=== PATIENT | male | born 1955 | race Hispanic/Latino ===

== ENCOUNTER 2019-03-13 12:45 | Inpatient (IN) | payer OTHER ==
[~2019-03-13] VITALS: Ht 185.4 cm; Wt 139.7 kg
[2019-03-13 12:14] VITALS: BP 118/65
[~2019-03-13 12:45] MED LIST changes: -ALBU2.5V2 IH; -GLIP10TA19 PO; -GLIP5TAB11 PO; -INSU100I21 SQ; -LINA5TAB PO; -LISI-617 PO; -METF-444 PO; -METF-446 PO; -METO100T14 PO; -METO25TA6 PO; -METO50TA18 PO; -TRAM50TA4 PO
[2019-03-13 13:12] LABS: BASOPHILS % (AUTO) 0.6 % (0.0-5.0); EOSINOPHILS % (AUTO) 3.1 % (0.0-8.0); HEMATOCRIT 47.6 % (42-54); LYMPHOCYTES % (AUTO) 19.3 % (21.0-51.0); MEAN CORPUSCULAR HEMOGLOBIN 29.4 pg (27.0-33.0); MEAN CORPUSCULAR HGB CONC 33.4 g/dL (32.0-36.0); MEAN CORPUSCULAR VOLUME 87.9 fL (79-99); MONOCYTES % (AUTO) 5.9 % (3.0-13.0); NEUTROPHILS % (AUTO) 71.1 % (40.0-77.0); NUCLEATED RED BLOOD CELLS 0.1 % (0.0-0.19); PLATELET COUNT (AUTO) 178 K/uL (130-400); RED BLOOD CELL COUNT(AUTO) 5.41 MIL/uL (4.50-6.20); RED CELL DISTRIBUTION WIDTH 14.9 % (11.0-15.5); WHITE BLOOD COUNT (AUTO) 8.6 K/uL (4.8-10.8)
[2019-03-13 13:22] LABS: INR 0.98 (0.85-1.15); PARTIAL THROMBOPLASTIN TIME 28.1 SEC (26.3-35.5); PROTHROMBIN TIME 10.3 SEC (9.6-11.6)
[2019-03-13 13:31] LABS: ALBUMIN 3.6 g/dL (3.5-5.0); BILIRUBIN,TOTAL 0.5 mg/dL (0.2-1.0); CREATININE 0.9 mg/dL (0.5-1.5); TOTAL PROTEIN, SERUM 8.8 g/dL (6.0-8.3)
[2019-03-13] MEDS ORDERED: METO25TA6 PO (14:21)
[2019-03-13] MEDS ORDERED: METO50TA18 PO (14:21)
[2019-03-13] MEDS ORDERED: GLIP5TAB11 PO (14:32)
[2019-03-13] MEDS ORDERED: METF-446 PO (14:32)
[2019-03-13] MEDS ORDERED: ALBU2.5V2 IH (14:37)
[2019-03-13] MEDS ORDERED: LISI-617 PO (14:37)
[2019-03-13] MEDS ORDERED: INSU100I21 SQ (14:37)
[2019-03-14] VITALS (23 sets, daily range): BP systolic 96–187; BP diastolic 41–83
[2019-03-14] MEDS: CEFUROXIME SODIUM 1.5 GM VIAL IVP SCH ×2 (05:00→14:30)
[2019-03-14] MEDS ORDERED: BACITRACIN 50,000 UNIT VIAL ONE (09:43)
[2019-03-14] MEDS ORDERED: SODIUM CHLORIDE 0.9% 1000ML 1,000 ML IV ONE (09:45)
[2019-03-14] MEDS ORDERED: ROPIVACAINE 0.5% 5MG/ML 30ML IJ ONE (11:57)
[2019-03-14] MEDS ORDERED: SUCCINYLCHOLINE 200MG/10ML SYR ONE (12:16)
[2019-03-14] MEDS ORDERED: ONDANSETRON HCL 4 MG/2 ML VIAL ONE (12:16)
[2019-03-14] MEDS ORDERED: DEXAMETHASONE SOD PHOSPHATE 10MG/ML 1ML VIAL ONE (12:16)
[2019-03-14] MEDS ORDERED: LIDOCAINE PF 2% 5ML ABBOJECT ONE ×2 (12:16→13:54)
[2019-03-14] MEDS ORDERED: NEOSTIGMINE 5MG/5ML SYR IV ONE (12:17)
[2019-03-14] MEDS ORDERED: MIDAZOLAM HCL 1 MG/ML 2ML VIAL ONE ×2 (12:17→16:46)
[2019-03-14] MEDS ORDERED: PROPOFOL 10 MG/ML 20ML VIAL IV ONE ×2 (12:17→14:05)
[2019-03-14] MEDS ORDERED: ROCURONIUM 10MG/1ML SYR 10 MG/ML ML ONE ×2 (12:17→15:16)
[2019-03-14] MEDS ORDERED: GLYCOPYRROLATE 1 MG/5 ML SYRINGE ONE (12:17)
[2019-03-14] MEDS ORDERED: FENTANYL CITRATE PF 50 MCG/1 ML 2ML VIAL ONE ×2 (12:17→16:04)
[2019-03-14] MEDS ORDERED: SUB TO ALBUTEROL 2.5MG/3ML NEBULES PER P&T IH ONE (13:25)
[2019-03-14] MEDS ORDERED: METOPROLOL TARTRATE 1 MG/ML 5ML VIAL IV ONE (14:32)
[2019-03-14] MEDS ORDERED: Q-PUMP 1 EACH IRRIG SCH (14:45)
[2019-03-14] MEDS ORDERED: ROPIVACAINE 0.2% 2MG/ML 100ML VIAL IJ ONE (15:00)
[2019-03-14 15:25] LABS: ABG BASE EXCESS -0.6 mmol/L (-2.0-3.0); ABG HCO3 23.7 mmol/L (21.0-28.0); ABG OXYGEN SATURATION 92.5 % (95.0-99.0); ABG PCO2 38 mmHg (35-48)
[2019-03-14] MEDS ORDERED: POTASSIUM CHLORIDE 10% ELIXIR 20 MEQ/15 ML UDCUP PO PRN (15:30)
[2019-03-14] MEDS ORDERED: LIDOCAINE HCL-MPF 1% 2ML VIAL IVP PRN (15:30)
[2019-03-14] MEDS ORDERED: GLUCAGON 1MG KIT 1 MG ML IM PRN (15:30)
[2019-03-14] MEDS ORDERED: DEXTROSE 50%-WATER 50 ML DISP.SYRIN IV PRN (15:30)
[2019-03-14] MEDS ORDERED: POTASSIUM CHLORIDE 20MEQ/100ML 100 ML IV PRN (15:30)
[2019-03-14] MEDS ORDERED: POTASSIUM CHLORIDE 20 MEQ ERTAB PO PRN (15:30)
[2019-03-14] MEDS ORDERED: AMIODARONE HCL 50 MG/ML 3 ML VIAL ONE (16:07)
[2019-03-14] MEDS ORDERED: IPRATROPIUM/ALBUTEROL SULFATE 3 ML SOLUTION IH ONE (17:10)
--- NOTE | 2019-03-14 17:17 | NUR ---
ROBERT TO LEFT WRIST REMOVED. CATHETER REMOVED INTACT. PRESSURE APPLIED FOR 20 MINUTES. NO HEMATOMA NOTED AT THIS TIME.
[2019-03-14 17:21] LABS: ABG BASE EXCESS -6.6 mmol/L (-2.0-3.0); ABG HCO3 20.6 mmol/L (21.0-28.0); ABG OXYGEN SATURATION 94.2 % (95.0-99.0); ABG PCO2 48 mmHg (35-48)
[2019-03-14] MEDS: METFORMIN HCL 500 MG TABLET PO SCH (18:00)
--- NOTE | 2019-03-14 18:30 | NUR ---
ASSESSMENT Post procedure - CT with sanguineous drainage. Marginal NIBP at present - . Pt AAO - reports back pain. Repositioned for comfort. Call light within reach. Will observe.
--- NOTE | 2019-03-14 18:42 | NUR ---
ASSESSMENT Improved NIBP - refer to separate documentation. CT level at 410ml - 250 marked on arrival to unit. Will observe. No evidence of air leak. No crepitus. CT continues to 20cm suction. Denies SOB. Remains on aerosol mask. Will medicate per PRN orders.
[2019-03-14] MEDS: TRAMADOL HCL 50 MG TABLET PO PRN (19:00)
[2019-03-14] MEDS: GABAPENTIN 300 MG CAPSULE PO SCH (22:08)
[2019-03-14] MEDS: METOPROLOL TARTRATE 25 MG TAB PO SCH (22:08)
[2019-03-14] MEDS: LISINOPRIL 5 MG TABLET PO SCH (22:08)
[2019-03-14] MEDS: ATORVASTATIN CALCIUM 10 MG TABLET PO SCH (22:08)
[2019-03-14] MEDS: INSULIN GLARGINE 100 UNITS/ML 10 ML VIAL SQ SCH (22:13)
[2019-03-14] MEDS: INSULIN HUMULIN R 100 UNIT/ML 3ML SQ SCH (22:14)
[2019-03-15] VITALS (10 sets, daily range): BP systolic 90–131; BP diastolic 51–100
[2019-03-15] MEDS: ALBUTEROL SULFATE 0.083% 2.5 MG/3 ML INH IH PRN (00:45)
--- NOTE | 2019-03-15 02:49 | NUR ---
Patient is refusing bath. Patient states its too painful to move. Will notify later on during day for a bath.
[2019-03-15] MEDS: TRAMADOL HCL 50 MG TABLET PO PRN ×5 (03:02→23:32)
[2019-03-15] MEDS: CEFUROXIME SODIUM 1.5 GM VIAL IVP SCH ×2 (03:02→16:03)
[2019-03-15 03:54] LABS: HEMATOCRIT 40.4 % (42-54); MEAN CORPUSCULAR HGB CONC 34.1 g/dL (32.0-36.0); PLATELET COUNT (AUTO) 168 K/uL (130-400); RED BLOOD CELL COUNT(AUTO) 4.59 MIL/uL (4.50-6.20); RED CELL DISTRIBUTION WIDTH 14.9 % (11.0-15.5); WHITE BLOOD COUNT (AUTO) 10.8 K/uL (4.8-10.8)
[2019-03-15 04:10] LABS: CREATININE 1.2 mg/dL (0.5-1.5); POTASSIUM 4.4 mmol/L (3.5-5.1)
--- NOTE | 2019-03-15 04:33 | NUR ---
PATIENT RESTING IN BED. DENIES SOB. DOES C/O PAIN TO INCISION SITE. MEDICATED WITH ORDERED PO PAIN MEDS. CHEST TUBE AT 20CMS TO CONTINUOS SUCTION, SEROSANGUINEOUS OUTPUT. PATIENT CURRENTLY ON 2L VIA NC, 02 SATS AT 97%. TOLERATING IV ABX. NO S/S OF N/V/D OR RASH. MARIN CATHETER IN PLACE DRAINING CLEAR YELLOW URINE. WILL REMOVE IN AM.
--- NOTE | 2019-03-15 06:00 | NUR ---
MARIN REMOVED AT 0600. DUE TO VOID WITHIN 6HRS
[2019-03-15] MEDS: INSULIN HUMULIN R 100 UNIT/ML 3ML SQ SCH ×4 (07:19→21:00)
[2019-03-15] MEDS: GABAPENTIN 300 MG CAPSULE PO SCH ×2 (08:33→21:19)
[2019-03-15] MEDS: METOPROLOL TARTRATE 50 MG TAB PO SCH (08:33)
[2019-03-15] MEDS: METFORMIN HCL 500 MG TABLET PO SCH ×2 (08:33→17:14)
--- NOTE | 2019-03-15 09:48 | NUR ---
JENNIFER Chanel met with pt who is retired, independent of all ADLS, uses cane prn, has no in home care services. Pt lives with Idalia Chaparro [phone]. Pt denies dc needs, plan is home at ma
[2019-03-15] MEDS: GLIPIZIDE 5 MG TABLET PO SCH (17:13)
[2019-03-15] MEDS: METOPROLOL TARTRATE 25 MG TAB PO SCH (21:19)
[2019-03-15] MEDS: LISINOPRIL 5 MG TABLET PO SCH (21:19)
[2019-03-15] MEDS: ATORVASTATIN CALCIUM 10 MG TABLET PO SCH (21:19)
[2019-03-15] MEDS: INSULIN GLARGINE 100 UNITS/ML 10 ML VIAL SQ SCH (21:25)
[2019-03-15] MEDS ORDERED: DIGOXIN 250 MCG/ML 2ML AMP IV SCH ×2 (23:15)
--- NOTE | 2019-03-15 23:15 | NUR ---
PATIENT ON A FIB 130s TO 150s. SLEEPING ASYMPTOMATIC. CALLED DR. Haley DICKEY TO NOTIFY. RECEIVED ORDERED THREE SPACED DOSES OF DIGOXIN IV PUSH. 2319- DIGOXIN 0.5 MG IV GIVEN ORDERED. WILL CONTINUE TO MONITOR PATIENT'S HEMODYNAMICS CLOSELY. 0020- A- FIB 120S. TO 140S, SYSTOLIC BLOOD PRESSURE IN THE 110s. SECOND DOSE OF DIGOXIN (0.25 MG) IV GIVEN. 0227. A- FIB 100S. TO 120S, SYSTOLIC BLOOD PRESSURE IN THE 110s. THIRD DOSE OF DIGOXIN GIVEN (0.25 MG IV) ORDERED. UNABLE TO SCANNED THIRD DOSE DOSE IS NOT PROFILED IN MEDICATION RECORD. WILL CONTINUE TO MONITOR PATIENT CLOSELY.
[2019-03-15] MEDS ORDERED: DIGOXIN 250 MCG/ML 2ML AMP ONE (23:19)
[2019-03-16] VITALS (11 sets, daily range): BP systolic 96–118; BP diastolic 44–73
[2019-03-16] MEDS: DIGOXIN 250 MCG/ML 2ML AMP IV SCH ×2 (00:23→23:15)
[2019-03-16] MEDS: CEFUROXIME SODIUM 1.5 GM VIAL IVP SCH (05:00)
[2019-03-16] MEDS: INSULIN HUMULIN R 100 UNIT/ML 3ML SQ SCH ×4 (06:45→21:00)
--- NOTE | 2019-03-16 09:06 | NUR ---
DR. HOLCOMB IN ROOM SPEAKING WITH PT.
[2019-03-16] MEDS: METFORMIN HCL 500 MG TABLET PO SCH ×2 (09:43→17:19)
[2019-03-16] MEDS: GABAPENTIN 300 MG CAPSULE PO SCH ×2 (09:43→21:18)
[2019-03-16] MEDS: METOPROLOL TARTRATE 50 MG TAB PO SCH (09:44)
[2019-03-16] MEDS: GLIPIZIDE 5 MG TABLET PO SCH ×2 (09:44→17:19)
[2019-03-16] MEDS: TRAMADOL HCL 50 MG TABLET PO PRN (09:45)
[2019-03-16] MEDS: ALBUTEROL SULFATE 0.083% 2.5 MG/3 ML INH IH PRN ×3 (10:11→19:23)
[2019-03-16] MEDS: LISINOPRIL 5 MG TABLET PO SCH (21:00)
[2019-03-16] MEDS: ATORVASTATIN CALCIUM 10 MG TABLET PO SCH (21:18)
[2019-03-16] MEDS: INSULIN GLARGINE 100 UNITS/ML 10 ML VIAL SQ SCH (21:21)
[2019-03-16] MEDS: METOPROLOL TARTRATE 25 MG TAB PO SCH (23:50)
[2019-03-17] MEDS: INSULIN HUMULIN R 100 UNIT/ML 3ML SQ SCH ×4 (06:53→21:00)
[2019-03-17 07:50] VITALS: BP 105/57
[2019-03-17] MEDS: METFORMIN HCL 500 MG TABLET PO SCH ×2 (09:16→17:03)
[2019-03-17] MEDS: GABAPENTIN 300 MG CAPSULE PO SCH ×2 (09:16→21:04)
[2019-03-17] MEDS: METOPROLOL TARTRATE 50 MG TAB PO SCH (09:16)
[2019-03-17] MEDS: GLIPIZIDE 5 MG TABLET PO SCH ×2 (09:17→17:03)
[2019-03-17] MEDS: TRAMADOL HCL 50 MG TABLET PO PRN ×2 (09:19→15:17)
[2019-03-17 11:55] VITALS: BP 104/56
--- NOTE | 2019-03-17 14:25 | NUR ---
DR. Haley DICKEY IN ROOM SPEAKING WITH PT. AND PT.'S FAMILY MEMBERS AT BEDSIDE. QUESTIONS ANSWERED BY DR. DICKEY.
--- NOTE | 2019-03-17 16:15 | NUR ---
ASSISTED PT. BACK TO BED FROM RECLINER. CHEST TUBE REMOVED WITH ASSISTANCE FROM [facility] DELGADO, CHEKO. Q-PUMP CONTINUES IN PLACE AFTER CHEST TUBE REMOVAL, AT A RATE OF 7ML/HR. TOLERATED PROCEDURE WELL. DENIES ANY C/O SOB. CALL LIGHT WITHIN REACH. PT.'S SPOUSE ALLOWED BACK IN ROOM.
[2019-03-17 16:32] VITALS: BP 96/47
--- NOTE | 2019-03-17 17:10 | NUR ---
SITTING IN RECLINER AT BEDSIDE EATING DINNER. DENIES ANY C/O SOB. STATES FEELS BETTER W/O CHEST TUBE AND ABLE TO LIFT RIGHT ARM HIGHER AND MOVE BETTER. CALL LIGHT WITHIN REACH. FAMILY MEMBERS AT BEDSIDE. SPOKE WITH PT. AND FAMILY MEMBERS AT BEDSIDE RE: PT.'S LACK OF CPAP USE FOR SEVERAL YEARS ( PER FAMILY), VERBALIZED MUTUAL UNDERSTANDING.
[2019-03-17 19:00] VITALS: BP 115/76
[2019-03-17] MEDS: INSULIN GLARGINE 100 UNITS/ML 10 ML VIAL SQ SCH (21:00)
[2019-03-17] MEDS: APIXABAN 5 MG TABLET PO SCH (21:04)
[2019-03-17] MEDS: LISINOPRIL 5 MG TABLET PO SCH (21:04)
[2019-03-17] MEDS: ATORVASTATIN CALCIUM 10 MG TABLET PO SCH (21:04)
[2019-03-17] MEDS: METOPROLOL TARTRATE 25 MG TAB PO SCH (21:05)
[2019-03-17] MEDS: DIGOXIN 250 MCG/ML 2ML AMP IV SCH (22:08)
[2019-03-17 23:00] VITALS: BP 121/57
[2019-03-18 03:00] VITALS: BP 133/65
[2019-03-18] MEDS: INSULIN HUMULIN R 100 UNIT/ML 3ML SQ SCH ×4 (05:53→20:51)
[2019-03-18 07:48] VITALS: BP 130/70
--- NOTE | 2019-03-18 08:00 | NUR ---
ASSESSMENT PT IS AAOX3 DENIES CP DENIES SOB DENIES NV AT THIS TIME, SITTING UPRIGHT IN BED AND ASSISTED UP TO BEDSIDE FOR BREAKFAST WITH NO COMPLAINTS. RIGHT SIDE DRESSING IS CLEAN DRY AND INTACT. FAMILY IS AT BEDSIDE. CALL LIGHT WITHIN REACH.
[2019-03-18] MEDS: METFORMIN HCL 500 MG TABLET PO SCH ×2 (08:06→16:46)
[2019-03-18] MEDS: METOPROLOL TARTRATE 50 MG TAB PO SCH (08:06)
[2019-03-18] MEDS: GLIPIZIDE 5 MG TABLET PO SCH ×2 (08:06→16:46)
[2019-03-18] MEDS: GABAPENTIN 300 MG CAPSULE PO SCH ×2 (08:06→20:25)
[2019-03-18] MEDS: APIXABAN 5 MG TABLET PO SCH (08:06)
[2019-03-18] MEDS: TRAMADOL HCL 50 MG TABLET PO PRN ×2 (10:35→18:50)
--- NOTE | 2019-03-18 10:35 | NUR ---
TRAMADOL 100MG GIVEN FOR PAIN SCALE 9 RIGHT SIDE SURGICAL SITE. ERROR IN SCANNING MED IN EMAR RECORDS, EMAR RECORDS SHOW 50MG ADMINISTERED.
[2019-03-18 11:53] VITALS: BP 104/57
[2019-03-18 16:01] VITALS: BP 97/55
--- NOTE | 2019-03-18 18:30 | NUR ---
STATUS UP IN CHAIR, COMPLAINS OF SOME RIGHT INCISION SITE PAIN. TRAMADOL GIVEN. NO OTHER COMPLAINTS, PATIENT IN GOOD SPIRITS, FAMILY IS AT BEDSIDE.
[2019-03-18] MEDS: DIGOXIN 250 MCG/ML 2ML AMP IV SCH (19:16)
[2019-03-18 19:45] VITALS: BP 123/59
[2019-03-18] MEDS: LISINOPRIL 5 MG TABLET PO SCH (20:25)
[2019-03-18] MEDS: ATORVASTATIN CALCIUM 10 MG TABLET PO SCH (20:26)
[2019-03-18] MEDS: METOPROLOL TARTRATE 25 MG TAB PO SCH (20:26)
[2019-03-18] MEDS: INSULIN GLARGINE 100 UNITS/ML 10 ML VIAL SQ SCH (20:27)
[2019-03-19 00:37] VITALS: BP 98/61
[2019-03-19 05:00] VITALS: BP 106/66
[2019-03-19] MEDS: INSULIN HUMULIN R 100 UNIT/ML 3ML SQ SCH ×2 (06:22→11:21)
[2019-03-19 07:00] VITALS: BP 121/73
[2019-03-19] MEDS: APIXABAN 5 MG TABLET PO SCH (07:23)
[2019-03-19] MEDS: GABAPENTIN 300 MG CAPSULE PO SCH (07:23)
[2019-03-19] MEDS: METOPROLOL TARTRATE 50 MG TAB PO SCH (07:24)
[2019-03-19] MEDS: METFORMIN HCL 500 MG TABLET PO SCH ×2 (07:24→16:48)
[2019-03-19] MEDS: GLIPIZIDE 5 MG TABLET PO SCH ×2 (07:24→16:48)
--- NOTE | 2019-03-19 08:00 | NUR ---
ASSESSMENT PT IS AAOX3 DENIES CP DENIES SOB DENIES NV AT THIS TIME, SITTING UPRIGHT IN BED WITH NO COMPLAINTS. O2 REMOVED, PATIENT IS ON ROOM AIR, SATURATING IN THE 90S%. DENIES SOB WITH O2 OFF FOR RIGHT NOW, CONTINUING TO MONITOR.
[2019-03-19] MEDS: TRAMADOL HCL 50 MG TABLET PO PRN ×2 (09:30→16:48)
[2019-03-19 11:00] VITALS: BP 117/92
--- NOTE | 2019-03-19 14:00 | NUR ---
MD ROUNDS DR MACIAS ROUNDED. ORDERS RECEIVED.
--- NOTE | 2019-03-19 15:30 | NUR ---
AMBULATED AROUND WHOLE FLOOR ON ROOM AIR, SATURATIONS NEVER FELL BELOW 91%. PATIENT TOLERATED AMBULATION WELL NO CHEST PAIN NO SHORTNESS OF BREATH VERBALIZED.
[2019-03-19 16:00] VITALS: BP 104/61
[2019-03-19] MEDS ORDERED: TRAM50TA4 PO (16:04)
--- NOTE | 2019-03-19 16:30 | NUR ---
TRAMADOL SCRIPT CALLED INTO PHARMACY BY EMILY TYLER RN
--- NOTE | 2019-03-19 18:02 | NUR ---
DC TO HOME PATIENT AND FAMILY VERBALIZE DC INSTRUCTIONS UNDERSTANDING. AGREE TO TAKE MEDICATIONS ORDERED. AGREE TO FOLLOW UP WITH DR DICKEY OUTPATIENT.ALL QUESTIONS ANSWERED. PIV REMOVED. CATH TIP INTACT. TELE PACK REMOVED. RIGHT SIDE SUTURE REMOVED, TEGADERM APPLIED. NO COMPLAINTS. ALL BELONGINGS TAKEN. DOWN VIA WC TO VEHICLE.
== END 2019-03-19 18:00 | disposition home or self-care (01) | DRG 120 ==
LOC: EDSTATUS 12:45 → DAHIP 03-14 07:31 → 2AH 03-14 18:09
PROVIDERS: ADMIT Thoracic Surgery (Cardiothoracic Vascular Surgery); ATTEND Thoracic Surgery (Cardiothoracic Vascular Surgery)
PROC: 0BTF0ZZ Resection of Right Lower Lung Lobe, Open Approach (ICD-10-PCS; principal; 2019-03-14 15:00)
PROC: 0PS104Z Reposition 1 to 2 Ribs with Internal Fixation Device, Open Approach (ICD-10-PCS; 2019-03-14 15:00)
PROC: 5A09357 Assistance with Respiratory Ventilation, Less than 24 Consecutive Hours, Continuous Positive Airway Pressure (ICD-10-PCS; 2019-03-15)
PROC: 5A09357 Assistance with Respiratory Ventilation, Less than 24 Consecutive Hours, Continuous Positive Airway Pressure (ICD-10-PCS; 2019-03-17)
PROC: 5A09357 Assistance with Respiratory Ventilation, Less than 24 Consecutive Hours, Continuous Positive Airway Pressure (ICD-10-PCS; 2019-03-18)
PROC: 5A09357 Assistance with Respiratory Ventilation, Less than 24 Consecutive Hours, Continuous Positive Airway Pressure (ICD-10-PCS; 2019-03-19)
DX: C34.31 Malignant neoplasm of lower lobe, right bronchus or lung (principal); I48.91 Unspecified atrial fibrillation; Z99.81 Dependence on supplemental oxygen; R09.02 Hypoxemia; S22.41XA Multiple fractures of ribs, right side, initial encounter for closed fracture; X58.XXXA Exposure to other specified factors, initial encounter; Z87.891 Personal history of nicotine dependence; Y93.89 Activity, other specified; Y92.89 Other specified places as the place of occurrence of the external cause; Y99.8 Other external cause status
CPT/HCPCS: 36415; 70450; 71045; 71046; 80048; 80053; 82435; 82803; 82947; 82948; 83036; 83605; 84132; 84295; 85018; 85025; 85027; 85610; 85730; 86850; 86900; 86901; 86922; 88307; 88309; 93005; 94640; 94660; 94664; 97039; A4218; A7048; G0378; J0282; J0330; J0697; J1100; J1160; J1815; J2001; J2250; J2405; J2704; J2710; J2795; J3010; J3490; J7030

== ENCOUNTER → 2019-03-13 | Outpatient (CLI) | payer OTHER ==
[~2019-03-13] MED LIST: ALBU2.5V2 IH; APIX5TAB PO; ATOR10TA69 PO; GABA-531 PO; GLIP10TA19 PO; GLIP5TAB11 PO; INSU100I21 SQ; LINA5TAB PO; LISI-617 PO; METF-444 PO; METF-446 PO; METO100T14 PO; METO25TA6 PO; METO50TA18 PO; TRAM50TA4 PO
== END | disposition home or self-care (01) ==
LOC: RAH 11:14
PROVIDERS: ATTEND Thoracic Surgery (Cardiothoracic Vascular Surgery)
DX: Z01.818 Encounter for other preprocedural examination (principal); C34.31 Malignant neoplasm of lower lobe, right bronchus or lung
CPT/HCPCS: 70450

== ENCOUNTER 2021-03-01 16:53 | Emergency (ER) | payer OTHER ==
[~2021-03-01 16:53] MED LIST changes: +ALBU2.5V2 IH; +GLIP5TAB11 PO; +INSU100I21 SQ; +LISI-809 PO; +METF-446 PO; +METO25TA6 PO; +METO50TA18 PO; +TRAM50TA4 PO
[2021-03-01] MEDS ORDERED: CLINDAMYCIN 600 MG/D5% WATER 50 ML IV ONE (17:42)
[2021-03-01] MEDS ORDERED: HYDROCODONE/ACETAMINOPHEN 10/325 MG TAB ONE (17:43)
[2021-03-01 17:59] LABS: BASOPHILS % (AUTO) 0.5 % (0.0-5.0); EOSINOPHILS % (AUTO) 0.5 % (0.0-8.0); HEMATOCRIT 42.9 % (42-54); LYMPHOCYTES % (AUTO) 16.8 % (21.0-51.0); MEAN CORPUSCULAR HGB CONC 33.1 g/dL (32.0-36.0); MEAN CORPUSCULAR VOLUME 90.7 fL (79-99); MONOCYTES % (AUTO) 7.9 % (3.0-13.0); NEUTROPHILS % (AUTO) 73.8 % (40.0-77.0); PLATELET COUNT (AUTO) 184 K/uL (130-400); RED BLOOD CELL COUNT(AUTO) 4.73 MIL/uL (4.50-6.20); RED CELL DISTRIBUTION WIDTH 14.5 % (11.0-15.5)
[2021-03-01 18:16] LABS: CREATININE 1.2 mg/dL (0.5-1.5)
[2021-03-01 18:20] LABS: ALBUMIN 3.3 g/dL (3.5-5.0); BILIRUBIN,TOTAL 0.5 mg/dL (0.2-1.0); TOTAL PROTEIN, SERUM 7.6 g/dL (6.0-8.3)
== END 2021-03-01 18:36 | disposition home or self-care (01) ==
LOC: EDH 16:53
DX: L03.116 Cellulitis of left lower limb (principal); E11.65 Type 2 diabetes mellitus with hyperglycemia; I10 Essential (primary) hypertension; E78.00 Pure hypercholesterolemia, unspecified; Z87.891 Personal history of nicotine dependence; Z85.118 Personal history of other malignant neoplasm of bronchus and lung
CPT/HCPCS: 36415; 80053; 82948; 83605; 85025; 87040 ×2; 96365; 99284; J3490

== ENCOUNTER 2021-07-03 08:30 | Inpatient (IN) | payer MEDICARE, OTHER ==
[~2021-07-03] VITALS: Ht 193 cm; Wt 133.9 kg
[2021-07-03] MEDS ORDERED: SUCCINYLCHOLINE CHLORIDE 20 MG/ML 10 ML VIAL IVP ONE (09:08)
[2021-07-03] MEDS ORDERED: ETOMIDATE 20MG VIAL IVP ONE (09:08)
[2021-07-03 09:19] LABS: ABG BASE EXCESS 5.5 mmol/L (-2.0-3.0); ABG HCO3 30.7 mmol/L (21.0-28.0); ABG PCO2 47 mmHg (35-48)
[2021-07-03 09:36] LABS: BASOPHILS % (AUTO) 0.3 % (0.0-5.0); EOSINOPHILS % (AUTO) 0.1 % (0.0-8.0); HEMATOCRIT 47.2 % (42-54); LYMPHOCYTES % (AUTO) 11.5 % (21.0-51.0); MEAN CORPUSCULAR HEMOGLOBIN 28.9 pg (27.0-33.0); MEAN CORPUSCULAR HGB CONC 31.6 g/dL (32.0-36.0); MEAN CORPUSCULAR VOLUME 91.7 fL (79-99); MONOCYTES % (AUTO) 7.6 % (3.0-13.0); NEUTROPHILS % (AUTO) 80.1 % (40.0-77.0); PLATELET COUNT (AUTO) 149 K/uL (130-400); RED BLOOD CELL COUNT(AUTO) 5.15 MIL/uL (4.50-6.20); RED CELL DISTRIBUTION WIDTH 13.3 % (11.0-15.5); WHITE BLOOD COUNT (AUTO) 7.2 K/uL (4.8-10.8)
[2021-07-03 09:43] LABS: CARBON DIOXIDE 33 mmol/L (21-32); CHLORIDE 100 mmol/L (101-111); CREATININE 1.4 mg/dL (0.5-1.5); GLOMERULAR FILTR. RATE CALC 54 mL/min (>60); GLUCOSE,RANDOM 201 mg/dL (70-105); POTASSIUM 3.7 mmol/L (3.5-5.1); SODIUM SERUM 140 mmol/L (136-145); UREA NITROGEN, BLOOD 18 mg/dL (7-18)
[2021-07-03 09:54] LABS: ALANINE AMINOTRANSFERASE 31 U/L (12-78); ALBUMIN 3.1 g/dL (3.5-5.0); ASPARTATE AMINOTRANSFERASE 34 U/L (10-37); BILIRUBIN,TOTAL 0.5 mg/dL (0.2-1.0); CREATINE KINASE, TOTAL 95 U/L (21-232); MYOGLOBIN 97 ng/mL (10-92); TROPONIN I < 0.04 ng/mL (0.00-0.06)
[2021-07-03 09:57] LABS: B-TYPE NATRIURETIC PEPTIDE 172 pg/mL (0-100)
[2021-07-03] MEDS ORDERED: AZITHROMYCIN 500MG+NS 250ML IV ONE (11:00)
[2021-07-03] MEDS ORDERED: METOPROLOL TARTRATE 1 MG/ML 5ML VIAL IV ONE (11:00)
[2021-07-03] MEDS ORDERED: 0.9% NACL 250ML IVPB ONE (11:00)
[2021-07-03] MEDS ORDERED: CEFTRIAXONE 1G VIAL IVP ONE (11:00)
[2021-07-03] MEDS: DEXAMETHASONE SOD PHOSPHATE 4 MG/ML 1ML VIAL IVP SCH ×2 (11:42→12:30)
[2021-07-03] MEDS ORDERED: ONDANSETRON 4MG INJ IV PRN (12:30)
[2021-07-03] MEDS ORDERED: ACETAMINOPHEN 325 MG TAB PO PRN (12:30)
[2021-07-03] MEDS ORDERED: DEXTROSE 50%-WATER 50 ML DISP.SYRIN IV PRN (12:30)
[2021-07-03] MEDS ORDERED: NITROGLYCERIN 0.4 MG SL TAB SL PRN (12:30)
[2021-07-03] MEDS ORDERED: HYDRALAZINE 20MG/ML VIAL IV PRN (12:30)
[2021-07-03] MEDS ORDERED: GLUCAGON 1MG KIT 1 MG ML IM PRN (12:30)
[2021-07-03] MEDS ORDERED: DIPHENHYDRAMINE HCL 25 MG CAPSULE PO PRN (12:30)
[2021-07-03] MEDS ORDERED: GUAIFENESIN-DM 200/20 MG 10 ML PO PRN (12:30)
[2021-07-03] MEDS ORDERED: ACETAMINOPHEN WITH CODEINE 1 TAB TAB PO PRN (12:30)
[2021-07-03] MEDS ORDERED: MAG/ALUM/SIMETH 30 ML UDCUP PO PRN (12:30)
[2021-07-03] MEDS ORDERED: LACTULOSE 20 GM/30 ML UDCUP PO PRN (12:30)
[2021-07-03] MEDS: CEFTRIAXONE 1G VIAL IVP SCH (12:30)
[2021-07-03 12:38] LABS: HEMOGLOBIN A1C 12.1 % (4.0-6.0)
[2021-07-03] MEDS: DOXYCYCLINE 100MG+NS 250ML IV SCH (12:48)
[2021-07-03] MEDS ORDERED: ALBUTEROL INHALER 90MCG/INH IH PRN (13:00)
[2021-07-03 14:21] VITALS: BP 127/84
[2021-07-03] MEDS ORDERED: MAGNESIUM 2GM PREMIX 50ML 50 ML IV PRN (16:30)
[2021-07-03] MEDS: INSULIN HUMULIN R 100 UNIT/ML 3ML SQ SCH ×2 (16:51→21:42)
[2021-07-03 18:42] VITALS: BP 124/74
[2021-07-03 20:21] VITALS: BP 117/40
[2021-07-03] MEDS: METOPROLOL TARTRATE 25 MG TAB PO SCH (21:41)
[2021-07-03] MEDS: FAMOTIDINE 20MG VIAL IV SCH (21:41)
[2021-07-03] MEDS: APIXABAN 2.5 MG TABLET PO SCH (21:41)
[2021-07-04] MEDS: DOXYCYCLINE 100MG+NS 250ML IV SCH ×3 (00:38→23:25)
[2021-07-04] MEDS: CEFTRIAXONE 1G VIAL IVP SCH ×3 (00:38→23:25)
[2021-07-04 01:18] VITALS: BP 129/72
[2021-07-04 03:35] VITALS: BP 143/83
[2021-07-04 06:08] VITALS: BP 117/69
[2021-07-04 06:28] LABS: BASOPHILS % (AUTO) 0.1 % (0.0-5.0); HEMATOCRIT 44.6 % (42-54); LYMPHOCYTES % (AUTO) 11.7 % (21.0-51.0); MEAN CORPUSCULAR HEMOGLOBIN 28.7 pg (27.0-33.0); MEAN CORPUSCULAR HGB CONC 30.9 g/dL (32.0-36.0); MEAN CORPUSCULAR VOLUME 92.7 fL (79-99); NEUTROPHILS % (AUTO) 80.6 % (40.0-77.0); PLATELET COUNT (AUTO) 153 K/uL (130-400); RED BLOOD CELL COUNT(AUTO) 4.81 MIL/uL (4.50-6.20); RED CELL DISTRIBUTION WIDTH 13.2 % (11.0-15.5); WHITE BLOOD COUNT (AUTO) 7.1 K/uL (4.8-10.8)
[2021-07-04 07:05] LABS: PLATELET MORPHOLOGY LARGE PLTS PRESENT
[2021-07-04] MEDS: INSULIN HUMULIN R 100 UNIT/ML 3ML SQ SCH ×4 (07:30→21:00)
[2021-07-04] MEDS ORDERED: PHARMACY COMMUNICATION MISC SCH (08:30)
[2021-07-04] MEDS ORDERED: ASCORBIC ACID 500 MG TAB PO SCH (09:00)
[2021-07-04] MEDS ORDERED: ENOXAPARIN SODIUM 40 MG/0.4 ML SYRINGE SQ SCH (09:00)
[2021-07-04] MEDS ORDERED: COMPOUND IV REFRIGERATED 1 EACH IVSOLN MISC PRN (09:00)
[2021-07-04] MEDS ORDERED: ZINC SULFATE 220 CAPSULE PO SCH (09:00)
[2021-07-04] MEDS: REMDESIVIR (EUA) 520 200 MG in 0.9% NACL 250ML 250 ML IV ONE ×2 (09:09→10:36)
[2021-07-04] MEDS: FAMOTIDINE 20MG VIAL IV SCH ×2 (09:09→21:00)
[2021-07-04] MEDS: APIXABAN 2.5 MG TABLET PO SCH ×2 (09:10→21:00)
[2021-07-04] MEDS: METOPROLOL TARTRATE 25 MG TAB PO SCH (09:10)
[2021-07-04 09:32] VITALS: BP 135/74
[2021-07-04] MEDS ORDERED: METOPROLOL TARTRATE 25 MG TAB PO ONE (10:00)
[2021-07-04] MEDS: INSULIN GLARGINE 100 UNITS/ML 10 ML VIAL SQ SCH (10:12)
[2021-07-04] MEDS: DEXAMETHASONE SOD PHOSPHATE 4 MG/ML 1ML VIAL IVP SCH ×2 (10:13→12:36)
[2021-07-04] MEDS ORDERED: GLIP10TA19 PO (12:17)
[2021-07-04] MEDS ORDERED: METO100T14 PO (12:18)
[2021-07-04] MEDS ORDERED: GABA300S PO (12:19)
[2021-07-04 13:12] LABS: CRP QUANTITATIVE 158.6 mg/L (0.00-9.0); POTASSIUM 4.2 mmol/L (3.5-5.1)
[2021-07-04] MEDS: GABAPENTIN 300 MG CAPSULE PO SCH ×2 (14:00→21:00)
[2021-07-04 15:49] VITALS: BP 135/78
[2021-07-04 20:14] VITALS: BP 130/77
[2021-07-04] MEDS: METOPROLOL TARTRATE 50 MG TAB PO SCH (21:00)
[2021-07-04] MEDS ORDERED: METOPROLOL TARTRATE 25 MG TAB PO SCH (21:00)
[2021-07-05] VITALS (9 sets, daily range): BP systolic 97–145; BP diastolic 52–91
[2021-07-05] MEDS: REMDESIVIR LABS MISC SCH (05:59)
[2021-07-05] MEDS: INSULIN HUMULIN R 100 UNIT/ML 3ML SQ SCH ×4 (09:04→22:17)
[2021-07-05] MEDS: FAMOTIDINE 20MG VIAL IV SCH ×2 (09:04→20:47)
[2021-07-05] MEDS: METOPROLOL TARTRATE 50 MG TAB PO SCH ×2 (09:04→20:47)
[2021-07-05] MEDS: GABAPENTIN 300 MG CAPSULE PO SCH ×3 (09:04→20:47)
[2021-07-05] MEDS: APIXABAN 2.5 MG TABLET PO SCH ×2 (09:04→20:47)
[2021-07-05] MEDS: INSULIN GLARGINE 100 UNITS/ML 10 ML VIAL SQ SCH (09:04)
[2021-07-05] MEDS ORDERED: PHARMACY COMMUNICATION MISC SCH (09:30)
[2021-07-05 09:38] LABS: BASOPHILS % (AUTO) 0.1 % (0.0-5.0); HEMATOCRIT 47.9 % (42-54); LYMPHOCYTES % (AUTO) 7.4 % (21.0-51.0); MEAN CORPUSCULAR HEMOGLOBIN 28.3 pg (27.0-33.0); MEAN CORPUSCULAR HGB CONC 30.3 g/dL (32.0-36.0); MEAN CORPUSCULAR VOLUME 93.4 fL (79-99); MONOCYTES % (AUTO) 5.4 % (3.0-13.0); NEUTROPHILS % (AUTO) 86.6 % (40.0-77.0); PLATELET COUNT (AUTO) 177 K/uL (130-400); RED BLOOD CELL COUNT(AUTO) 5.13 MIL/uL (4.50-6.20); RED CELL DISTRIBUTION WIDTH 13.2 % (11.0-15.5); WHITE BLOOD COUNT (AUTO) 9.9 K/uL (4.8-10.8)
[2021-07-05 09:52] LABS: ALBUMIN 2.7 g/dL (3.5-5.0); BILIRUBIN,DIRECT 0.1 mg/dL (0.0-0.3); BILIRUBIN,TOTAL 0.4 mg/dL (0.2-1.0); CRP QUANTITATIVE 144.3 mg/L (0.00-9.0)
[2021-07-05] MEDS ORDERED: 0.9%NACL 100ML 100 ML ONE (12:37)
[2021-07-05] MEDS: REMDESIVIR (EUA) 520 100 MG in 0.9% NACL 250ML 250 ML IV SCH (13:00)
[2021-07-05] MEDS: DEXAMETHASONE SOD PHOSPHATE 4 MG/ML 1ML VIAL IVP SCH (13:45)
[2021-07-05] MEDS: CEFTRIAXONE 1G VIAL IVP SCH (13:45)
[2021-07-05] MEDS: DOXYCYCLINE 100MG+NS 250ML IV SCH (13:45)
[2021-07-06] VITALS (7 sets, daily range): BP systolic 93–137; BP diastolic 51–89
[2021-07-06] MEDS: CEFTRIAXONE 1G VIAL IVP SCH ×2 (02:09→12:20)
[2021-07-06] MEDS: DOXYCYCLINE 100MG+NS 250ML IV SCH ×2 (02:09→12:37)
[2021-07-06 06:12] LABS: BASOPHILS % (AUTO) 0.1 % (0.0-5.0); HEMATOCRIT 45.9 % (42-54); LYMPHOCYTES % (AUTO) 9.2 % (21.0-51.0); MEAN CORPUSCULAR HEMOGLOBIN 28.8 pg (27.0-33.0); MEAN CORPUSCULAR HGB CONC 31.2 g/dL (32.0-36.0); MEAN CORPUSCULAR VOLUME 92.4 fL (79-99); MONOCYTES % (AUTO) 7.7 % (3.0-13.0); NEUTROPHILS % (AUTO) 82.4 % (40.0-77.0); PLATELET COUNT (AUTO) 170 K/uL (130-400); RED BLOOD CELL COUNT(AUTO) 4.97 MIL/uL (4.50-6.20); RED CELL DISTRIBUTION WIDTH 13.2 % (11.0-15.5); WHITE BLOOD COUNT (AUTO) 7.8 K/uL (4.8-10.8)
[2021-07-06] MEDS: REMDESIVIR LABS MISC SCH (07:02)
[2021-07-06] MEDS: INSULIN HUMULIN R 100 UNIT/ML 3ML SQ SCH ×4 (07:02→19:38)
[2021-07-06 08:45] LABS: CREATININE 1.1 mg/dL (0.5-1.5); POTASSIUM 4.5 mmol/L (3.5-5.1)
[2021-07-06 08:50] LABS: ALBUMIN 2.5 g/dL (3.5-5.0); BILIRUBIN,TOTAL 0.2 mg/dL (0.2-1.0); TOTAL PROTEIN, SERUM 7.7 g/dL (6.0-8.3)
[2021-07-06] MEDS: APIXABAN 2.5 MG TABLET PO SCH ×2 (09:08→20:04)
[2021-07-06] MEDS: GABAPENTIN 300 MG CAPSULE PO SCH ×3 (09:08→20:05)
[2021-07-06] MEDS: INSULIN GLARGINE 100 UNITS/ML 10 ML VIAL SQ SCH (09:08)
[2021-07-06] MEDS: FAMOTIDINE 20MG VIAL IV SCH ×2 (09:08→20:04)
[2021-07-06] MEDS: METOPROLOL TARTRATE 50 MG TAB PO SCH ×2 (09:08→20:04)
[2021-07-06] MEDS: BARICITINIB (EUA) 2 MG TABLET PO SCH (09:30)
[2021-07-06] MEDS: DEXAMETHASONE SOD PHOSPHATE 4 MG/ML 1ML VIAL IVP SCH (12:20)
[2021-07-06] MEDS: REMDESIVIR (EUA) 520 100 MG in 0.9% NACL 250ML 250 ML IV SCH (14:14)
[2021-07-06] MEDS: FUROSEMIDE 20MG VIAL IV SCH (18:00)
[2021-07-07] VITALS (19 sets, daily range): BP systolic 106–162; BP diastolic 9–154
[2021-07-07] MEDS: DEXAMETHASONE SOD PHOSPHATE 4 MG/ML 1ML VIAL IVP SCH ×2 (00:19→12:24)
[2021-07-07] MEDS: DOXYCYCLINE 100MG+NS 250ML IV SCH ×2 (00:19→12:20)
[2021-07-07] MEDS: CEFTRIAXONE 1G VIAL IVP SCH ×2 (00:19→12:24)
[2021-07-07] MEDS: INSULIN HUMULIN R 100 UNIT/ML 3ML SQ SCH ×4 (05:28→20:28)
[2021-07-07] MEDS: FUROSEMIDE 20MG VIAL IV SCH (05:44)
[2021-07-07 05:49] LABS: BASOPHILS % (AUTO) 0.1 % (0.0-5.0); HEMATOCRIT 47.4 % (42-54); LYMPHOCYTES % (AUTO) 11.2 % (21.0-51.0); MEAN CORPUSCULAR HEMOGLOBIN 28.8 pg (27.0-33.0); MEAN CORPUSCULAR VOLUME 92.8 fL (79-99); MONOCYTES % (AUTO) 3.5 % (3.0-13.0); NEUTROPHILS % (AUTO) 84.2 % (40.0-77.0); PLATELET COUNT (AUTO) 190 K/uL (130-400); RED BLOOD CELL COUNT(AUTO) 5.11 MIL/uL (4.50-6.20); RED CELL DISTRIBUTION WIDTH 13.1 % (11.0-15.5); WHITE BLOOD COUNT (AUTO) 7.9 K/uL (4.8-10.8)
[2021-07-07 05:57] LABS: ALBUMIN 2.5 g/dL (3.5-5.0); BILIRUBIN,TOTAL 0.3 mg/dL (0.2-1.0); CREATININE 1.1 mg/dL (0.5-1.5); POTASSIUM 4.5 mmol/L (3.5-5.1); TOTAL PROTEIN, SERUM 7.7 g/dL (6.0-8.3)
[2021-07-07] MEDS: REMDESIVIR LABS MISC SCH (06:00)
[2021-07-07 07:18] LABS: ABG BASE EXCESS 1.5 mmol/L (-2.0-3.0); ABG HCO3 28.5 mmol/L (21.0-28.0); ABG PCO2 54 mmHg (35-48)
[2021-07-07 07:31] LABS: ABG BASE EXCESS 3.3 mmol/L (-2.0-3.0); ABG HCO3 30.6 mmol/L (21.0-28.0); ABG OXYGEN SATURATION 83.9 % (95.0-99.0); ABG PCO2 58 mmHg (35-48)
[2021-07-07] MEDS: FAMOTIDINE 20MG VIAL IV SCH ×2 (09:30→20:27)
[2021-07-07] MEDS: APIXABAN 2.5 MG TABLET PO SCH ×2 (09:33→20:28)
[2021-07-07] MEDS: GABAPENTIN 300 MG CAPSULE PO SCH ×3 (09:33→20:28)
[2021-07-07] MEDS: METOPROLOL TARTRATE 50 MG TAB PO SCH ×2 (09:33→20:28)
[2021-07-07] MEDS: BARICITINIB (EUA) 2 MG TABLET PO SCH (09:52)
[2021-07-07] MEDS: INSULIN GLARGINE 100 UNITS/ML 10 ML VIAL SQ SCH (10:40)
[2021-07-07] MEDS ORDERED: SOLU-MEDROL 40MG VIAL IVP SCH (13:30)
[2021-07-07] MEDS: REMDESIVIR (EUA) 520 100 MG in 0.9% NACL 250ML 250 ML IV SCH (14:39)
[2021-07-07] MEDS: SOLU-MEDROL 40MG VIAL IVP SCH (20:27)
[2021-07-08] VITALS (39 sets, daily range): BP systolic 103–181; BP diastolic 52–104
[2021-07-08] MEDS: CEFTRIAXONE 1G VIAL IVP SCH ×3 (01:07→23:52)
[2021-07-08] MEDS: DOXYCYCLINE 100MG+NS 250ML IV SCH ×3 (01:07→23:52)
[2021-07-08] MEDS: DEXMEDETOMIDINE HCL 200 MCG in 0.9%NACL 50ML 50 ML IV SCH ×2 (01:22→05:39)
[2021-07-08] MEDS ORDERED: DEXMEDETOMIDINE HCL 200 MCG/2 ML VIAL IV ONE ×3 (02:28→05:31)
[2021-07-08 04:29] LABS: LYMPHOCYTES % (AUTO) 8.2 % (21.0-51.0); MEAN CORPUSCULAR HEMOGLOBIN 28.9 pg (27.0-33.0); MEAN CORPUSCULAR HGB CONC 32.2 g/dL (32.0-36.0); MEAN CORPUSCULAR VOLUME 89.6 fL (79-99); MONOCYTES % (AUTO) 4.1 % (3.0-13.0); NEUTROPHILS % (AUTO) 86.5 % (40.0-77.0); PLATELET COUNT (AUTO) 206 K/uL (130-400); RED BLOOD CELL COUNT(AUTO) 5.02 MIL/uL (4.50-6.20); RED CELL DISTRIBUTION WIDTH 13.2 % (11.0-15.5); WHITE BLOOD COUNT (AUTO) 8.6 K/uL (4.8-10.8)
[2021-07-08 04:34] LABS: ABG BASE EXCESS 3.4 mmol/L (-2.0-3.0); ABG HCO3 27.6 mmol/L (21.0-28.0); ABG PCO2 41 mmHg (35-48)
[2021-07-08 04:53] LABS: ALBUMIN 2.3 g/dL (3.5-5.0); BILIRUBIN,TOTAL 0.3 mg/dL (0.2-1.0); POTASSIUM 4.7 mmol/L (3.5-5.1)
[2021-07-08] MEDS: REMDESIVIR LABS MISC SCH (05:36)
[2021-07-08] MEDS: INSULIN HUMULIN R 100 UNIT/ML 3ML SQ SCH ×4 (06:32→21:00)
[2021-07-08] MEDS: [UNRECOGNIZED DRUG - OTHER] IV SCH ×2 (07:56→13:31)
[2021-07-08] MEDS: DEXMEDETOMIDINE HCL IV SCH ×2 (07:56→13:31)
[2021-07-08] MEDS: METOPROLOL TARTRATE 50 MG TAB PO SCH ×2 (09:00→21:00)
[2021-07-08] MEDS: SOLU-MEDROL 40MG VIAL IVP SCH ×2 (10:13→21:18)
[2021-07-08] MEDS: FAMOTIDINE 20MG VIAL IV SCH ×2 (10:13→21:18)
[2021-07-08] MEDS: INSULIN GLARGINE 100 UNITS/ML 10 ML VIAL SQ SCH (10:17)
[2021-07-08] MEDS: REMDESIVIR (EUA) 520 100 MG in 0.9% NACL 250ML 250 ML IV SCH (13:00)
[2021-07-08] MEDS: APIXABAN 2.5 MG TABLET PO SCH (13:02)
[2021-07-08] MEDS: BARICITINIB (EUA) 2 MG TABLET PO SCH (13:09)
[2021-07-08] MEDS: GABAPENTIN 300 MG CAPSULE PO SCH ×3 (13:10→21:17)
[2021-07-08] MEDS: DEXMEDETOMIDINE HCL 400 MCG in 0.9%NACL 100ML 100 ML IV SCH ×2 (17:05→18:24)
[2021-07-08] MEDS ORDERED: PHARMACY COMMUNICATION MISC SCH (18:30)
[2021-07-08] MEDS ORDERED: PROPOFOL 1000 MG/100 ML 100 ML IV ONE (19:13)
[2021-07-08] MEDS ORDERED: FENTANYL 2500MCG+NS 250ML 250 ML IV ONE (19:13)
[2021-07-08] MEDS ORDERED: NOREPINEPHRINE 4MG/NS 250ML 250 ML IV SCH (20:00)
[2021-07-08] MEDS ORDERED: FENTANYL CITRATE PF 0.05 MG/ML 1,000 MCG in 0.9%NACL 100ML 100 ML IVPB SCH (20:00)
[2021-07-08 20:54] LABS: ABG BASE EXCESS 2.9 mmol/L (-2.0-3.0); ABG HCO3 25.6 mmol/L (21.0-28.0); ABG OXYGEN SATURATION 89.8 % (95.0-99.0); ABG PCO2 34 mmHg (35-48)
[2021-07-08] MEDS: ENOXAPARIN SODIUM 120 MG/0.8ML SQ SCH (21:24)
[2021-07-08] MEDS: ROCURONIUM BROMIDE 100 MG in 0.9%NACL 100ML 100 ML IV SCH ×2 (22:02→23:53)
[2021-07-08] MEDS: PROPOFOL 1000 MG/100 ML IV PRN (23:54)
[2021-07-09] VITALS (43 sets, daily range): BP systolic 90–126; BP diastolic 49–80
[2021-07-09] MEDS: PROPOFOL 1000 MG/100 ML IV PRN ×8 (02:25→22:23)
[2021-07-09] MEDS: ROCURONIUM BROMIDE 100 MG in 0.9%NACL 100ML 100 ML IV SCH ×3 (02:25→08:36)
[2021-07-09 04:36] LABS: BASOPHILS % (AUTO) 0.2 % (0.0-5.0); LYMPHOCYTES % (AUTO) 8.2 % (21.0-51.0); MEAN CORPUSCULAR HEMOGLOBIN 28.2 pg (27.0-33.0); MEAN CORPUSCULAR HGB CONC 31.8 g/dL (32.0-36.0); MEAN CORPUSCULAR VOLUME 88.8 fL (79-99); MONOCYTES % (AUTO) 4.1 % (3.0-13.0); NEUTROPHILS % (AUTO) 86.2 % (40.0-77.0); PLATELET COUNT (AUTO) 222 K/uL (130-400); RED BLOOD CELL COUNT(AUTO) 5.07 MIL/uL (4.50-6.20); RED CELL DISTRIBUTION WIDTH 13.2 % (11.0-15.5); WHITE BLOOD COUNT (AUTO) 9.5 K/uL (4.8-10.8)
[2021-07-09 04:42] LABS: BILIRUBIN,TOTAL 0.5 mg/dL (0.2-1.0); TOTAL PROTEIN, SERUM 6.6 g/dL (6.0-8.3)
[2021-07-09] MEDS ORDERED: NACL 0.9% IV SCH (07:00)
[2021-07-09] MEDS ORDERED: ROCURONIUM BROMIDE IV SCH (07:00)
[2021-07-09 07:23] LABS: ABG BASE EXCESS 0.2 mmol/L (-2.0-3.0); ABG HCO3 21.6 mmol/L (21.0-28.0); ABG OXYGEN SATURATION 98.6 % (95.0-99.0); ABG PCO2 27 mmHg (35-48)
[2021-07-09] MEDS ORDERED: FENTANYL 2500MCG+NS 250ML 250 ML IV ONE (07:55)
[2021-07-09] MEDS ORDERED: PHARMACY COMMUNICATION MISC SCH (08:04)
[2021-07-09] MEDS: FENTANYL 2500MCG+NS 250ML 250 ML IV SCH (08:32)
[2021-07-09] MEDS: METOPROLOL TARTRATE 50 MG TAB PO SCH ×2 (08:33→20:24)
[2021-07-09] MEDS: BARICITINIB (EUA) 2 MG TABLET PO SCH (09:19)
[2021-07-09] MEDS: GABAPENTIN 300 MG CAPSULE PO SCH ×3 (09:19→20:24)
[2021-07-09] MEDS: ENOXAPARIN SODIUM 120 MG/0.8ML SQ SCH ×2 (09:19→20:23)
[2021-07-09] MEDS: FAMOTIDINE 20MG VIAL IV SCH ×2 (09:19→20:23)
[2021-07-09] MEDS: SOLU-MEDROL 40MG VIAL IVP SCH ×2 (09:19→20:24)
[2021-07-09] MEDS: INSULIN GLARGINE 100 UNITS/ML 10 ML VIAL SQ SCH (09:26)
[2021-07-09 11:15] LABS: ABG OXYGEN SATURATION 96.1 % (95.0-99.0); ABG PCO2 38 mmHg (35-48)
[2021-07-09] MEDS: DOXYCYCLINE 100MG+NS 250ML IV SCH (11:33)
[2021-07-09] MEDS: CEFTRIAXONE 1G VIAL IVP SCH (11:33)
[2021-07-09] MEDS: INSULIN HUMULIN R 100 UNIT/ML 3ML SQ SCH ×2 (11:38→18:17)
[2021-07-09] MEDS ORDERED: COMPOUND IV REFRIGERATED 1 EACH IVSOLN MISC PRN (14:00)
[2021-07-09] MEDS: REMDESIVIR (EUA) 520 100 MG in 0.9% NACL 250ML 250 ML IV SCH (15:37)
[2021-07-09] MEDS ORDERED: 0.9% NACL 500ML IV.SOLN 500 ML IV ONE (16:40)
[2021-07-10] VITALS (45 sets, daily range): BP systolic 108–155; BP diastolic 58–109
[2021-07-10] MEDS: INSULIN HUMULIN R 100 UNIT/ML 3ML SQ SCH ×5 (00:27→23:47)
[2021-07-10] MEDS: CEFTRIAXONE 1G VIAL IVP SCH (00:28)
[2021-07-10] MEDS: DOXYCYCLINE 100MG+NS 250ML IV SCH (00:28)
[2021-07-10] MEDS: PROPOFOL 1000 MG/100 ML IV PRN ×8 (01:13→23:58)
[2021-07-10 04:54] LABS: BASOPHILS % (AUTO) 0.1 % (0.0-5.0); HEMATOCRIT 45.2 % (42-54); LYMPHOCYTES % (AUTO) 6.5 % (21.0-51.0); MEAN CORPUSCULAR HEMOGLOBIN 28.8 pg (27.0-33.0); MEAN CORPUSCULAR HGB CONC 31.6 g/dL (32.0-36.0); MEAN CORPUSCULAR VOLUME 90.9 fL (79-99); NEUTROPHILS % (AUTO) 87.6 % (40.0-77.0); PLATELET COUNT (AUTO) 207 K/uL (130-400); RED BLOOD CELL COUNT(AUTO) 4.97 MIL/uL (4.50-6.20); RED CELL DISTRIBUTION WIDTH 13.2 % (11.0-15.5); WHITE BLOOD COUNT (AUTO) 9.6 K/uL (4.8-10.8)
[2021-07-10 05:10] LABS: ALBUMIN 1.9 g/dL (3.5-5.0); BILIRUBIN,TOTAL 0.3 mg/dL (0.2-1.0); CREATININE 1.3 mg/dL (0.5-1.5); CRP QUANTITATIVE 36.5 mg/L (0.00-9.0); POTASSIUM 4.2 mmol/L (3.5-5.1); TOTAL PROTEIN, SERUM 6.3 g/dL (6.0-8.3)
[2021-07-10] MEDS: FENTANYL 2500MCG+NS 250ML 250 ML IV SCH ×2 (05:27→21:21)
[2021-07-10] MEDS: ROCURONIUM BROMIDE 100 MG in 0.9%NACL 100ML 100 ML IV SCH ×2 (05:52→07:18)
[2021-07-10] MEDS: REMDESIVIR LABS MISC SCH (06:42)
[2021-07-10 07:49] LABS: ABG BASE EXCESS 0.5 mmol/L (-2.0-3.0); ABG HCO3 25.7 mmol/L (21.0-28.0); ABG OXYGEN SATURATION 94.6 % (95.0-99.0); ABG PCO2 43 mmHg (35-48)
[2021-07-10] MEDS: GABAPENTIN 300 MG CAPSULE PO SCH ×3 (08:23→20:13)
[2021-07-10] MEDS: SOLU-MEDROL 40MG VIAL IVP SCH ×2 (08:23→20:14)
[2021-07-10] MEDS: FAMOTIDINE 20MG VIAL IV SCH ×2 (08:23→20:13)
[2021-07-10] MEDS: ENOXAPARIN SODIUM 120 MG/0.8ML SQ SCH ×2 (08:24→20:13)
[2021-07-10] MEDS: INSULIN GLARGINE 100 UNITS/ML 10 ML VIAL SQ SCH (08:29)
[2021-07-10] MEDS: METOPROLOL TARTRATE 50 MG TAB PO SCH ×2 (08:30→20:14)
[2021-07-10] MEDS ORDERED: METOPROLOL TARTRATE 50 MG TAB ONE (09:58)
[2021-07-10] MEDS ORDERED: METOPROLOL TARTRATE 50 MG TAB PO SCH (10:00)
[2021-07-10] MEDS: BARICITINIB (EUA) 2 MG TABLET PO SCH (10:01)
[2021-07-10] MEDS: REMDESIVIR (EUA) 520 100 MG in 0.9% NACL 250ML 250 ML IV SCH (14:49)
[2021-07-11] VITALS (29 sets, daily range): BP systolic 94–121; BP diastolic 38–80
[2021-07-11] MEDS: PROPOFOL 1000 MG/100 ML IV PRN ×6 (02:32→21:48)
[2021-07-11 04:20] LABS: LYMPHOCYTES % (AUTO) 4.3 % (21.0-51.0); MEAN CORPUSCULAR HEMOGLOBIN 28.5 pg (27.0-33.0); MEAN CORPUSCULAR VOLUME 89.1 fL (79-99); NEUTROPHILS % (AUTO) 90.7 % (40.0-77.0); PLATELET COUNT (AUTO) 225 K/uL (130-400); RED BLOOD CELL COUNT(AUTO) 4.94 MIL/uL (4.50-6.20); RED CELL DISTRIBUTION WIDTH 13.2 % (11.0-15.5); WHITE BLOOD COUNT (AUTO) 10.5 K/uL (4.8-10.8)
[2021-07-11 04:21] LABS: BASOPHILS % (AUTO) 0.1 % (0.0-5.0); MONOCYTES % (AUTO) 3.1 % (3.0-13.0); NUCLEATED RED BLOOD CELLS 0.2 % (0.0-0.19)
[2021-07-11 04:36] LABS: CREATININE 1.1 mg/dL (0.5-1.5); CRP QUANTITATIVE 23.8 mg/L (0.00-9.0); POTASSIUM 4.4 mmol/L (3.5-5.1)
[2021-07-11] MEDS: INSULIN HUMULIN R 100 UNIT/ML 3ML SQ SCH ×3 (06:22→18:18)
[2021-07-11 06:47] LABS: ALBUMIN 2.1 g/dL (3.5-5.0); BILIRUBIN,DIRECT 0.1 mg/dL (0.0-0.3); BILIRUBIN,TOTAL 0.3 mg/dL (0.2-1.0); TOTAL PROTEIN, SERUM 6.4 g/dL (6.0-8.3)
[2021-07-11] MEDS: REMDESIVIR LABS MISC SCH (07:00)
[2021-07-11 07:55] LABS: ABG BASE EXCESS 2.1 mmol/L (-2.0-3.0); ABG HCO3 26.3 mmol/L (21.0-28.0); ABG OXYGEN SATURATION 97.1 % (95.0-99.0); ABG PCO2 39 mmHg (35-48)
[2021-07-11] MEDS: FAMOTIDINE 20MG VIAL IV SCH ×2 (08:25→20:53)
[2021-07-11] MEDS: METOPROLOL TARTRATE 50 MG TAB PO SCH ×2 (08:25→21:00)
[2021-07-11] MEDS: GABAPENTIN 300 MG CAPSULE PO SCH ×3 (08:26→20:53)
[2021-07-11] MEDS: INSULIN GLARGINE 100 UNITS/ML 10 ML VIAL SQ SCH (08:28)
[2021-07-11] MEDS: BARICITINIB (EUA) 2 MG TABLET PO SCH (08:36)
[2021-07-11] MEDS: ENOXAPARIN SODIUM 120 MG/0.8ML SQ SCH ×2 (08:37→20:52)
[2021-07-11] MEDS: SOLU-MEDROL 40MG VIAL IVP SCH ×2 (09:44→20:52)
[2021-07-11] MEDS: FENTANYL 2500MCG+NS 250ML 250 ML IV SCH (09:46)
[2021-07-11] MEDS: REMDESIVIR (EUA) 520 100 MG in 0.9% NACL 250ML 250 ML IV SCH (13:51)
[2021-07-12] VITALS (26 sets, daily range): BP systolic 98–147; BP diastolic 51–97
[2021-07-12] MEDS: INSULIN HUMULIN R 100 UNIT/ML 3ML SQ SCH ×4 (00:56→18:12)
[2021-07-12] MEDS: PROPOFOL 1000 MG/100 ML IV PRN ×5 (01:14→20:54)
[2021-07-12] MEDS: FENTANYL 2500MCG+NS 250ML 250 ML IV SCH ×2 (01:19→15:16)
[2021-07-12 04:28] LABS: BASOPHILS % (AUTO) 0.2 % (0.0-5.0); HEMATOCRIT 44.3 % (42-54); LYMPHOCYTES % (AUTO) 6.1 % (21.0-51.0); MEAN CORPUSCULAR HEMOGLOBIN 28.5 pg (27.0-33.0); MEAN CORPUSCULAR HGB CONC 31.6 g/dL (32.0-36.0); MEAN CORPUSCULAR VOLUME 90.2 fL (79-99); MONOCYTES % (AUTO) 2.4 % (3.0-13.0); NEUTROPHILS % (AUTO) 88.4 % (40.0-77.0); NUCLEATED RED BLOOD CELLS 0.2 % (0.0-0.19); PLATELET COUNT (AUTO) 193 K/uL (130-400); RED BLOOD CELL COUNT(AUTO) 4.91 MIL/uL (4.50-6.20); RED CELL DISTRIBUTION WIDTH 13.3 % (11.0-15.5); WHITE BLOOD COUNT (AUTO) 8.2 K/uL (4.8-10.8)
[2021-07-12 05:00] LABS: CREATININE 1.1 mg/dL (0.5-1.5); CRP QUANTITATIVE 15.8 mg/L (0.00-9.0); POTASSIUM 4.4 mmol/L (3.5-5.1)
[2021-07-12] MEDS: REMDESIVIR LABS MISC SCH (07:41)
[2021-07-12] MEDS: FAMOTIDINE 20MG VIAL IV SCH ×2 (07:54→20:39)
[2021-07-12] MEDS: METOPROLOL TARTRATE 50 MG TAB PO SCH ×2 (07:54→20:40)
[2021-07-12] MEDS: SOLU-MEDROL 40MG VIAL IVP SCH ×2 (07:54→20:40)
[2021-07-12] MEDS: GABAPENTIN 300 MG CAPSULE PO SCH ×3 (07:58→20:40)
[2021-07-12] MEDS: INSULIN GLARGINE 100 UNITS/ML 10 ML VIAL SQ SCH (07:59)
[2021-07-12] MEDS: ENOXAPARIN SODIUM 120 MG/0.8ML SQ SCH ×2 (08:00→20:42)
[2021-07-12 08:45] LABS: ABG BASE EXCESS 0.5 mmol/L (-2.0-3.0); ABG HCO3 23.8 mmol/L (21.0-28.0); ABG OXYGEN SATURATION 87.9 % (95.0-99.0); ABG PCO2 35 mmHg (35-48)
[2021-07-12] MEDS ORDERED: REMDESIVIR LABS MISC SCH (13:00)
[2021-07-12 13:29] LABS: ALBUMIN 2.1 g/dL (3.5-5.0); BILIRUBIN,DIRECT 0.1 mg/dL (0.0-0.3); BILIRUBIN,TOTAL 0.3 mg/dL (0.2-1.0); TOTAL PROTEIN, SERUM 6.1 g/dL (6.0-8.3)
[2021-07-12] MEDS: REMDESIVIR (EUA) 520 100 MG in 0.9% NACL 250ML 250 ML IV SCH (15:05)
[2021-07-12] MEDS: BARICITINIB (EUA) 2 MG TABLET PO SCH (15:06)
[2021-07-13] VITALS (35 sets, daily range): BP systolic 84–159; BP diastolic 42–97
[2021-07-13] MEDS: INSULIN HUMULIN R 100 UNIT/ML 3ML SQ SCH ×4 (00:42→17:50)
[2021-07-13] MEDS: PROPOFOL 1000 MG/100 ML IV PRN ×4 (01:18→20:58)
[2021-07-13] MEDS ORDERED: DEXMEDETOMIDINE HCL 400 MCG in 0.9%NACL 100ML 100 ML IV SCH (04:00)
[2021-07-13 04:12] LABS: BASOPHILS % (AUTO) 0.1 % (0.0-5.0); LYMPHOCYTES % (AUTO) 4.5 % (21.0-51.0); MEAN CORPUSCULAR HEMOGLOBIN 28.5 pg (27.0-33.0); MEAN CORPUSCULAR HGB CONC 32.1 g/dL (32.0-36.0); MEAN CORPUSCULAR VOLUME 88.8 fL (79-99); MONOCYTES % (AUTO) 2.6 % (3.0-13.0); NEUTROPHILS % (AUTO) 89.9 % (40.0-77.0); NUCLEATED RED BLOOD CELLS 0.3 % (0.0-0.19); PLATELET COUNT (AUTO) 224 K/uL (130-400); RED BLOOD CELL COUNT(AUTO) 4.84 MIL/uL (4.50-6.20); RED CELL DISTRIBUTION WIDTH 13.4 % (11.0-15.5); WHITE BLOOD COUNT (AUTO) 11.7 K/uL (4.8-10.8)
[2021-07-13] MEDS: REMDESIVIR LABS MISC SCH (06:00)
[2021-07-13 07:28] LABS: ABG BASE EXCESS 2.3 mmol/L (-2.0-3.0); ABG HCO3 25.8 mmol/L (21.0-28.0); ABG OXYGEN SATURATION 86.2 % (95.0-99.0); ABG PCO2 37 mmHg (35-48)
[2021-07-13] MEDS: BARICITINIB (EUA) 2 MG TABLET PO SCH (08:28)
[2021-07-13] MEDS: METOPROLOL TARTRATE 50 MG TAB PO SCH ×2 (08:28→21:00)
[2021-07-13] MEDS: FAMOTIDINE 20MG VIAL IV SCH ×2 (08:29→20:58)
[2021-07-13] MEDS: SOLU-MEDROL 40MG VIAL IVP SCH ×2 (08:29→20:53)
[2021-07-13] MEDS: GABAPENTIN 300 MG CAPSULE PO SCH ×3 (08:29→20:56)
[2021-07-13] MEDS: ENOXAPARIN SODIUM 120 MG/0.8ML SQ SCH ×2 (08:30→20:58)
[2021-07-13] MEDS: INSULIN GLARGINE 100 UNITS/ML 10 ML VIAL SQ SCH (08:30)
[2021-07-13] MEDS: DEXMEDETOMIDINE 400MCG/NS100ML IV SCH ×2 (08:31→14:12)
[2021-07-13] MEDS: FENTANYL 2500MCG+NS 250ML 250 ML IV SCH ×2 (09:19→21:02)
[2021-07-13 13:14] LABS: ALBUMIN 2.1 g/dL (3.5-5.0); BILIRUBIN,DIRECT 0.1 mg/dL (0.0-0.3); BILIRUBIN,TOTAL 0.3 mg/dL (0.2-1.0); TOTAL PROTEIN, SERUM 5.4 g/dL (6.0-8.3)
[2021-07-13] MEDS: REMDESIVIR (EUA) 520 100 MG in 0.9% NACL 250ML 250 ML IV SCH (14:12)
[2021-07-13 18:57] LABS: HEMATOCRIT 43.4 % (42-54)
[2021-07-13 19:09] LABS: INR 1.12 (0.85-1.15); PROTHROMBIN TIME 12.1 SEC (9.6-11.6)
[2021-07-14] VITALS (54 sets, daily range): BP systolic 87–176; BP diastolic 45–108
[2021-07-14] MEDS: INSULIN HUMULIN R 100 UNIT/ML 3ML SQ SCH ×4 (01:00→18:46)
[2021-07-14] MEDS: PROPOFOL 1000 MG/100 ML IV PRN ×5 (03:24→22:49)
[2021-07-14 07:10] LABS: ABG BASE EXCESS -0.3 mmol/L (-2.0-3.0); ABG OXYGEN SATURATION 85.8 % (95.0-99.0); ABG PCO2 34 mmHg (35-48)
[2021-07-14] MEDS: METOPROLOL TARTRATE 50 MG TAB PO SCH ×3 (09:00→22:49)
[2021-07-14 09:23] LABS: BASOPHILS % (AUTO) 0.1 % (0.0-5.0); EOSINOPHILS % (AUTO) 0.1 % (0.0-8.0); HEMATOCRIT 42.7 % (42-54); LYMPHOCYTES % (AUTO) 3.9 % (21.0-51.0); MEAN CORPUSCULAR HEMOGLOBIN 28.4 pg (27.0-33.0); MEAN CORPUSCULAR HGB CONC 31.1 g/dL (32.0-36.0); MONOCYTES % (AUTO) 2.6 % (3.0-13.0); NEUTROPHILS % (AUTO) 91.2 % (40.0-77.0); NUCLEATED RED BLOOD CELLS 0.2 % (0.0-0.19); PLATELET COUNT (AUTO) 227 K/uL (130-400); RED BLOOD CELL COUNT(AUTO) 4.69 MIL/uL (4.50-6.20); RED CELL DISTRIBUTION WIDTH 13.6 % (11.0-15.5); WHITE BLOOD COUNT (AUTO) 13.5 K/uL (4.8-10.8)
[2021-07-14 09:40] LABS: ALBUMIN 2.1 g/dL (3.5-5.0); BILIRUBIN,TOTAL 0.4 mg/dL (0.2-1.0); CREATININE 0.9 mg/dL (0.5-1.5); MAGNESIUM 1.9 mg/dL (1.80-2.40); POTASSIUM 4.6 mmol/L (3.5-5.1); TOTAL PROTEIN, SERUM 5.2 g/dL (6.0-8.3)
[2021-07-14] MEDS: GABAPENTIN 300 MG CAPSULE PO SCH ×3 (10:33→20:43)
[2021-07-14] MEDS: SOLU-MEDROL 40MG VIAL IVP SCH ×2 (10:33→20:43)
[2021-07-14] MEDS: FAMOTIDINE 20MG VIAL IV SCH ×2 (10:34→20:43)
[2021-07-14] MEDS: ENOXAPARIN SODIUM 120 MG/0.8ML SQ SCH (10:36)
[2021-07-14] MEDS: BARICITINIB (EUA) 2 MG TABLET PO SCH (10:40)
[2021-07-14] MEDS: INSULIN GLARGINE 100 UNITS/ML 10 ML VIAL SQ SCH (10:41)
[2021-07-14] MEDS: DEXMEDETOMIDINE 400MCG/NS100ML IV SCH (12:05)
[2021-07-14] MEDS: LACTULOSE 20 GM/30 ML UDCUP GT SCH ×2 (17:01→20:43)
[2021-07-14] MEDS: BUSPIRONE HCL 5 MG TABLET PO SCH (20:43)
[2021-07-15] VITALS (45 sets, daily range): BP systolic 94–150; BP diastolic 50–92
[2021-07-15] MEDS: INSULIN HUMULIN R 100 UNIT/ML 3ML SQ SCH ×4 (01:12→17:17)
[2021-07-15] MEDS: PROPOFOL 1000 MG/100 ML IV PRN ×8 (01:47→23:51)
[2021-07-15] MEDS: FENTANYL 2500MCG+NS 250ML 250 ML IV SCH ×2 (01:56→13:46)
[2021-07-15 03:07] LABS: ABG BASE EXCESS 0.9 mmol/L (-2.0-3.0); ABG HCO3 26.5 mmol/L (21.0-28.0); ABG PCO2 46 mmHg (35-48)
[2021-07-15 05:40] LABS: BASOPHILS % (AUTO) 0.2 % (0.0-5.0); EOSINOPHILS % (AUTO) 0.1 % (0.0-8.0); HEMATOCRIT 44.3 % (42-54); LYMPHOCYTES % (AUTO) 1.8 % (21.0-51.0); MEAN CORPUSCULAR HEMOGLOBIN 28.8 pg (27.0-33.0); MEAN CORPUSCULAR HGB CONC 32.3 g/dL (32.0-36.0); MEAN CORPUSCULAR VOLUME 89.3 fL (79-99); MONOCYTES % (AUTO) 3.3 % (3.0-13.0); NEUTROPHILS % (AUTO) 92.4 % (40.0-77.0); NUCLEATED RED BLOOD CELLS 0.1 % (0.0-0.19); PLATELET COUNT (AUTO) 337 K/uL (130-400); RED BLOOD CELL COUNT(AUTO) 4.96 MIL/uL (4.50-6.20); RED CELL DISTRIBUTION WIDTH 13.7 % (11.0-15.5); WHITE BLOOD COUNT (AUTO) 24.9 K/uL (4.8-10.8)
[2021-07-15 06:02] LABS: ALBUMIN 2.1 g/dL (3.5-5.0); BILIRUBIN,TOTAL 0.5 mg/dL (0.2-1.0); CREATININE 0.9 mg/dL (0.5-1.5); MAGNESIUM 1.8 mg/dL (1.80-2.40); POTASSIUM 4.2 mmol/L (3.5-5.1); TOTAL PROTEIN, SERUM 6.3 g/dL (6.0-8.3)
[2021-07-15] MEDS: SOLU-MEDROL 40MG VIAL IVP SCH ×2 (08:47→20:15)
[2021-07-15] MEDS: BUSPIRONE HCL 5 MG TABLET PO SCH ×2 (08:47→20:14)
[2021-07-15] MEDS: FAMOTIDINE 20MG VIAL IV SCH ×2 (08:47→20:15)
[2021-07-15] MEDS: BARICITINIB (EUA) 2 MG TABLET PO SCH (08:47)
[2021-07-15] MEDS: LACTULOSE 20 GM/30 ML UDCUP GT SCH (08:48)
[2021-07-15] MEDS: GABAPENTIN 300 MG CAPSULE PO SCH ×3 (08:48→20:14)
[2021-07-15] MEDS: METOPROLOL TARTRATE 50 MG TAB PO SCH ×2 (08:48→20:15)
[2021-07-15] MEDS: INSULIN GLARGINE 100 UNITS/ML 10 ML VIAL SQ SCH (08:50)
[2021-07-15] MEDS: ROCURONIUM BROMIDE 100 MG in 0.9%NACL 100ML 100 ML IV SCH ×4 (09:49→14:43)
[2021-07-15] MEDS ORDERED: ENOXAPARIN SODIUM 0.5 MG/KG EACH SQ SCH (10:30)
[2021-07-15] MEDS: ENOXAPARIN SODIUM 80 MG/0.8 ML SQ SCH ×2 (11:35→20:16)
[2021-07-15] MEDS ORDERED: PHARMACY COMMUNICATION MISC SCH ×2 (16:30)
[2021-07-15] MEDS: ROCURONIUM BROMIDE IV SCH ×2 (17:02→22:40)
[2021-07-15] MEDS: [UNRECOGNIZED DRUG - OTHER] IV SCH ×2 (17:02→22:40)
[2021-07-15] MEDS: MEROPENEM 1 GM VIAL IVP SCH (17:16)
[2021-07-16] VITALS (52 sets, daily range): BP systolic 86–145; BP diastolic 38–83
[2021-07-16] MEDS: MEROPENEM 1 GM VIAL IVP SCH ×3 (01:23→17:00)
[2021-07-16] MEDS: INSULIN HUMULIN R 100 UNIT/ML 3ML SQ SCH ×6 (01:23→17:58)
[2021-07-16] MEDS: FENTANYL 2500MCG+NS 250ML 250 ML IV SCH ×2 (01:30→13:51)
[2021-07-16] MEDS: PROPOFOL 1000 MG/100 ML IV PRN ×2 (01:31→06:15)
[2021-07-16] MEDS: [UNRECOGNIZED DRUG - OTHER] IV SCH ×4 (02:52→19:39)
[2021-07-16] MEDS: ROCURONIUM BROMIDE IV SCH ×4 (02:52→19:39)
[2021-07-16 07:15] LABS: ABG BASE EXCESS -0.4 mmol/L (-2.0-3.0); ABG HCO3 24.4 mmol/L (21.0-28.0); ABG OXYGEN SATURATION 88.2 % (95.0-99.0); ABG PCO2 41 mmHg (35-48)
[2021-07-16 08:32] LABS: BASOPHILS % (AUTO) 0.1 % (0.0-5.0); EOSINOPHILS % (AUTO) 0.1 % (0.0-8.0); HEMATOCRIT 37.6 % (42-54); LYMPHOCYTES % (AUTO) 3.5 % (21.0-51.0); MEAN CORPUSCULAR HEMOGLOBIN 28.3 pg (27.0-33.0); MEAN CORPUSCULAR HGB CONC 31.1 g/dL (32.0-36.0); MONOCYTES % (AUTO) 2.7 % (3.0-13.0); NEUTROPHILS % (AUTO) 92.3 % (40.0-77.0); PLATELET COUNT (AUTO) 220 K/uL (130-400); RED BLOOD CELL COUNT(AUTO) 4.13 MIL/uL (4.50-6.20); RED CELL DISTRIBUTION WIDTH 13.5 % (11.0-15.5); WHITE BLOOD COUNT (AUTO) 11.9 K/uL (4.8-10.8)
[2021-07-16] MEDS: METOPROLOL TARTRATE 50 MG TAB PO SCH ×2 (09:00→22:18)
[2021-07-16 09:02] LABS: ALBUMIN 1.6 g/dL (3.5-5.0); BILIRUBIN,TOTAL 0.4 mg/dL (0.2-1.0); POTASSIUM 4.4 mmol/L (3.5-5.1); TOTAL PROTEIN, SERUM 5.4 g/dL (6.0-8.3)
[2021-07-16] MEDS: SOLU-MEDROL 40MG VIAL IVP SCH ×2 (09:07→22:15)
[2021-07-16] MEDS: GABAPENTIN 300 MG CAPSULE PO SCH ×3 (09:07→22:26)
[2021-07-16] MEDS: BUSPIRONE HCL 5 MG TABLET PO SCH ×2 (09:07→22:18)
[2021-07-16] MEDS: FAMOTIDINE 20MG VIAL IV SCH ×2 (09:07→22:15)
[2021-07-16] MEDS: BARICITINIB (EUA) 2 MG TABLET PO SCH (09:08)
[2021-07-16] MEDS: INSULIN GLARGINE 100 UNITS/ML 10 ML VIAL SQ SCH (09:09)
[2021-07-16] MEDS: ENOXAPARIN SODIUM 80 MG/0.8 ML SQ SCH ×2 (09:10→22:17)
[2021-07-16 09:22] LABS: CRP QUANTITATIVE 170.2 mg/L (0.00-9.0)
[2021-07-16 09:30] LABS: CREATININE 0.9 mg/dL (0.5-1.5)
[2021-07-16] MEDS ORDERED: MIDAZOLAM 50MG-0.9% NS 50ML 50 ML BAG IV SCH (10:00)
[2021-07-16] MEDS: FUROSEMIDE 20MG VIAL IV SCH ×2 (14:04→22:18)
[2021-07-16] MEDS: LINEZOLID 600 MG/ISO-OSM 300 ML IV SCH (17:59)
[2021-07-16] MEDS: MIDAZOLAM 100MG-0.9% NS 100ML 100ML BAG IV SCH (22:27)
[2021-07-17] VITALS (38 sets, daily range): BP systolic 95–135; BP diastolic 53–93
[2021-07-17] MEDS: MEROPENEM 1 GM VIAL IVP SCH ×3 (00:50→17:33)
[2021-07-17] MEDS: FENTANYL 2500MCG+NS 250ML 250 ML IV SCH ×3 (00:52→21:28)
[2021-07-17] MEDS: ROCURONIUM BROMIDE IV SCH ×6 (00:52→21:27)
[2021-07-17] MEDS: [UNRECOGNIZED DRUG - OTHER] IV SCH ×6 (00:52→21:27)
[2021-07-17] MEDS: INSULIN HUMULIN R 100 UNIT/ML 3ML SQ SCH ×7 (00:54→17:36)
[2021-07-17] MEDS: LINEZOLID 600 MG/ISO-OSM 300 ML IV SCH ×2 (05:51→17:33)
[2021-07-17] MEDS: MIDAZOLAM 100MG-0.9% NS 100ML 100ML BAG IV SCH ×2 (05:52→09:37)
[2021-07-17 06:56] LABS: BASOPHILS % (AUTO) 0.1 % (0.0-5.0); HEMATOCRIT 38.5 % (42-54); LYMPHOCYTES % (AUTO) 3.5 % (21.0-51.0); MEAN CORPUSCULAR HEMOGLOBIN 28.8 pg (27.0-33.0); MEAN CORPUSCULAR HGB CONC 32.2 g/dL (32.0-36.0); MEAN CORPUSCULAR VOLUME 89.3 fL (79-99); MONOCYTES % (AUTO) 3.5 % (3.0-13.0); NEUTROPHILS % (AUTO) 91.1 % (40.0-77.0); NUCLEATED RED BLOOD CELLS 0.2 % (0.0-0.19); PLATELET COUNT (AUTO) 290 K/uL (130-400); RED BLOOD CELL COUNT(AUTO) 4.31 MIL/uL (4.50-6.20); RED CELL DISTRIBUTION WIDTH 13.7 % (11.0-15.5); WHITE BLOOD COUNT (AUTO) 12.1 K/uL (4.8-10.8)
[2021-07-17 07:10] LABS: ALBUMIN 1.7 g/dL (3.5-5.0); BILIRUBIN,TOTAL 0.4 mg/dL (0.2-1.0); CREATININE 0.8 mg/dL (0.5-1.5); POTASSIUM 4.5 mmol/L (3.5-5.1); TOTAL PROTEIN, SERUM 5.8 g/dL (6.0-8.3)
[2021-07-17 07:28] LABS: ABG BASE EXCESS 1.2 mmol/L (-2.0-3.0); ABG HCO3 23.2 mmol/L (21.0-28.0); ABG OXYGEN SATURATION 96.4 % (95.0-99.0); ABG PCO2 29 mmHg (35-48)
[2021-07-17] MEDS: SOLU-MEDROL 40MG VIAL IVP SCH ×2 (07:42→22:13)
[2021-07-17] MEDS: GABAPENTIN 300 MG CAPSULE PO SCH ×3 (07:43→21:53)
[2021-07-17] MEDS: FUROSEMIDE 20MG VIAL IV SCH ×2 (07:43→21:53)
[2021-07-17] MEDS: FAMOTIDINE 20MG VIAL IV SCH (07:43)
[2021-07-17] MEDS: BUSPIRONE HCL 5 MG TABLET PO SCH ×2 (07:43→21:53)
[2021-07-17] MEDS: INSULIN GLARGINE 100 UNITS/ML 10 ML VIAL SQ SCH (07:44)
[2021-07-17] MEDS: ENOXAPARIN SODIUM 80 MG/0.8 ML SQ SCH ×2 (07:44→21:57)
[2021-07-17] MEDS: BARICITINIB (EUA) 2 MG TABLET PO SCH (08:03)
[2021-07-17] MEDS: METOPROLOL TARTRATE 50 MG TAB PO SCH ×2 (09:00→21:53)
[2021-07-17] MEDS ORDERED: PHARMACY COMMUNICATION MISC SCH (12:30)
[2021-07-17 20:43] LABS: ABG BASE EXCESS 3.8 mmol/L (-2.0-3.0); ABG HCO3 29.7 mmol/L (21.0-28.0); ABG OXYGEN SATURATION 90.2 % (95.0-99.0); ABG PCO2 50 mmHg (35-48)
[2021-07-18] VITALS (36 sets, daily range): BP systolic 103–158; BP diastolic 58–104
[2021-07-18] MEDS: INSULIN HUMULIN R 100 UNIT/ML 3ML SQ SCH ×8 (00:58→17:48)
[2021-07-18] MEDS: MEROPENEM 1 GM VIAL IVP SCH ×4 (00:59→23:56)
[2021-07-18] MEDS: ROCURONIUM BROMIDE IV SCH ×7 (03:26→20:27)
[2021-07-18] MEDS: [UNRECOGNIZED DRUG - OTHER] IV SCH ×7 (03:26→20:27)
[2021-07-18] MEDS: MIDAZOLAM 100MG-0.9% NS 100ML 100ML BAG IV SCH ×2 (03:27→16:02)
[2021-07-18] MEDS: LINEZOLID 600 MG/ISO-OSM 300 ML IV SCH ×2 (05:30→17:38)
[2021-07-18 06:45] LABS: BASOPHILS % (AUTO) 0.2 % (0.0-5.0); HEMATOCRIT 42.8 % (42-54); LYMPHOCYTES % (AUTO) 3.2 % (21.0-51.0); MEAN CORPUSCULAR HEMOGLOBIN 28.8 pg (27.0-33.0); MEAN CORPUSCULAR HGB CONC 31.8 g/dL (32.0-36.0); MEAN CORPUSCULAR VOLUME 90.7 fL (79-99); MONOCYTES % (AUTO) 3.7 % (3.0-13.0); NEUTROPHILS % (AUTO) 91.1 % (40.0-77.0); NUCLEATED RED BLOOD CELLS 0.1 % (0.0-0.19); PLATELET COUNT (AUTO) 318 K/uL (130-400); RED BLOOD CELL COUNT(AUTO) 4.72 MIL/uL (4.50-6.20); RED CELL DISTRIBUTION WIDTH 13.7 % (11.0-15.5); WHITE BLOOD COUNT (AUTO) 14.7 K/uL (4.8-10.8)
[2021-07-18 07:09] LABS: ALBUMIN 1.8 g/dL (3.5-5.0); BILIRUBIN,TOTAL 0.5 mg/dL (0.2-1.0); CREATININE 0.8 mg/dL (0.5-1.5); POTASSIUM 4.3 mmol/L (3.5-5.1)
[2021-07-18 07:22] LABS: ABG BASE EXCESS 4.6 mmol/L (-2.0-3.0); ABG HCO3 30.2 mmol/L (21.0-28.0); ABG OXYGEN SATURATION 92.5 % (95.0-99.0); ABG PCO2 48 mmHg (35-48)
[2021-07-18] MEDS: SOLU-MEDROL 40MG VIAL IVP SCH ×2 (08:07→20:49)
[2021-07-18] MEDS: BUSPIRONE HCL 5 MG TABLET PO SCH ×2 (08:09→20:49)
[2021-07-18] MEDS: FUROSEMIDE 20MG VIAL IV SCH ×2 (08:09→21:31)
[2021-07-18] MEDS: ENOXAPARIN SODIUM 80 MG/0.8 ML SQ SCH ×2 (08:10→20:48)
[2021-07-18] MEDS: INSULIN GLARGINE 100 UNITS/ML 10 ML VIAL SQ SCH (08:11)
[2021-07-18] MEDS: BARICITINIB (EUA) 2 MG TABLET PO SCH (08:11)
[2021-07-18] MEDS: GABAPENTIN 300 MG CAPSULE PO SCH ×3 (08:26→20:49)
[2021-07-18] MEDS: METOPROLOL TARTRATE 50 MG TAB PO SCH ×2 (08:27→20:49)
[2021-07-18] MEDS: FENTANYL 2500MCG+NS 250ML 250 ML IV SCH ×2 (09:29→21:45)
[2021-07-18] MEDS: ALBUTEROL INHALER 90MCG/INH IH SCH ×3 (12:32→23:57)
[2021-07-19] VITALS (49 sets, daily range): BP systolic 96–146; BP diastolic 51–100
[2021-07-19] MEDS: INSULIN HUMULIN R 100 UNIT/ML 3ML SQ SCH ×8 (00:02→17:44)
[2021-07-19] MEDS: [UNRECOGNIZED DRUG - OTHER] IV SCH ×4 (00:14→17:06)
[2021-07-19] MEDS: ROCURONIUM BROMIDE IV SCH ×4 (00:14→17:06)
[2021-07-19] MEDS: MIDAZOLAM 100MG-0.9% NS 100ML 100ML BAG IV SCH (02:27)
[2021-07-19] MEDS ORDERED: ROCURONIUM BROMIDE 10MG/1ML 5ML VL ONE (02:33)
[2021-07-19] MEDS ORDERED: 0.9%NACL 100ML 100 ML ONE (02:45)
[2021-07-19 03:53] LABS: ABG BASE EXCESS 7.2 mmol/L (-2.0-3.0); ABG HCO3 34.2 mmol/L (21.0-28.0); ABG OXYGEN SATURATION 89.2 % (95.0-99.0); ABG PCO2 57 mmHg (35-48)
[2021-07-19] MEDS: LINEZOLID 600 MG/ISO-OSM 300 ML IV SCH ×2 (05:37→17:04)
[2021-07-19] MEDS: ALBUTEROL INHALER 90MCG/INH IH SCH (05:38)
[2021-07-19 06:29] LABS: BASOPHILS % (AUTO) 0.1 % (0.0-5.0); HEMATOCRIT 43.5 % (42-54); LYMPHOCYTES % (AUTO) 2.8 % (21.0-51.0); MEAN CORPUSCULAR HEMOGLOBIN 28.6 pg (27.0-33.0); MEAN CORPUSCULAR HGB CONC 32.2 g/dL (32.0-36.0); MEAN CORPUSCULAR VOLUME 88.8 fL (79-99); MONOCYTES % (AUTO) 3.7 % (3.0-13.0); PLATELET COUNT (AUTO) 324 K/uL (130-400); RED CELL DISTRIBUTION WIDTH 13.4 % (11.0-15.5); WHITE BLOOD COUNT (AUTO) 14.9 K/uL (4.8-10.8)
[2021-07-19 06:41] LABS: ALBUMIN 1.8 g/dL (3.5-5.0); BILIRUBIN,TOTAL 0.4 mg/dL (0.2-1.0); CREATININE 0.9 mg/dL (0.5-1.5); CRP QUANTITATIVE 19.2 mg/L (0.00-9.0); MAGNESIUM 1.8 mg/dL (1.80-2.40); POTASSIUM 4.3 mmol/L (3.5-5.1)
[2021-07-19] MEDS: BARICITINIB (EUA) 2 MG TABLET PO SCH (08:41)
[2021-07-19] MEDS: PANTOPRAZOLE 40 MG TAB DR PO SCH (08:41)
[2021-07-19] MEDS: MEROPENEM 1 GM VIAL IVP SCH ×2 (08:42→17:04)
[2021-07-19] MEDS: BUSPIRONE HCL 5 MG TABLET PO SCH (08:42)
[2021-07-19] MEDS: GABAPENTIN 300 MG CAPSULE PO SCH (08:42)
[2021-07-19] MEDS: METOPROLOL TARTRATE 50 MG TAB PO SCH ×2 (08:42→19:52)
[2021-07-19] MEDS: ENOXAPARIN SODIUM 80 MG/0.8 ML SQ SCH ×2 (08:47→19:52)
[2021-07-19] MEDS: INSULIN GLARGINE 100 UNITS/ML 10 ML VIAL SQ SCH (08:49)
[2021-07-19] MEDS: FENTANYL 2500MCG+NS 250ML 250 ML IV SCH ×2 (09:02→19:50)
[2021-07-19] MEDS: SOLU-MEDROL 40MG VIAL IVP SCH ×2 (12:22→21:02)
[2021-07-19] MEDS: FUROSEMIDE 20MG VIAL IV SCH ×2 (12:29→21:02)
[2021-07-19] MEDS: PROPOFOL 1000 MG/100 ML IV PRN ×3 (14:20→19:51)
[2021-07-19] MEDS ORDERED: PROPOFOL 1000 MG/100 ML IV PRN (14:30)
[2021-07-19] MEDS ORDERED: ALBUTEROL INHALER 90MCG/INH IH PRN (15:00)
[2021-07-20] VITALS (24 sets, daily range): BP systolic 92–159; BP diastolic 50–108
[2021-07-20] MEDS: [UNRECOGNIZED DRUG - OTHER] IV SCH ×2 (00:47→04:00)
[2021-07-20] MEDS: ROCURONIUM BROMIDE IV SCH ×2 (00:47→04:00)
[2021-07-20] MEDS: INSULIN HUMULIN R 100 UNIT/ML 3ML SQ SCH ×4 (00:48→05:20)
[2021-07-20] MEDS: MEROPENEM 1 GM VIAL IVP SCH ×2 (00:56→08:42)
[2021-07-20] MEDS: PROPOFOL 1000 MG/100 ML IV PRN (03:00)
[2021-07-20] MEDS: LINEZOLID 600 MG/ISO-OSM 300 ML IV SCH (05:14)
[2021-07-20 06:23] LABS: BASOPHILS % (AUTO) 0.1 % (0.0-5.0); EOSINOPHILS % (AUTO) 0.1 % (0.0-8.0); HEMATOCRIT 41.5 % (42-54); LYMPHOCYTES % (AUTO) 3.4 % (21.0-51.0); MEAN CORPUSCULAR HEMOGLOBIN 29.2 pg (27.0-33.0); MEAN CORPUSCULAR HGB CONC 32.3 g/dL (32.0-36.0); MEAN CORPUSCULAR VOLUME 90.4 fL (79-99); MONOCYTES % (AUTO) 3.7 % (3.0-13.0); NEUTROPHILS % (AUTO) 90.1 % (40.0-77.0); PLATELET COUNT (AUTO) 326 K/uL (130-400); RED BLOOD CELL COUNT(AUTO) 4.59 MIL/uL (4.50-6.20); RED CELL DISTRIBUTION WIDTH 13.5 % (11.0-15.5); WHITE BLOOD COUNT (AUTO) 14.8 K/uL (4.8-10.8)
[2021-07-20 06:44] LABS: ALBUMIN 1.6 g/dL (3.5-5.0); BILIRUBIN,TOTAL 0.4 mg/dL (0.2-1.0); CREATININE 0.9 mg/dL (0.5-1.5); POTASSIUM 4.4 mmol/L (3.5-5.1); TOTAL PROTEIN, SERUM 5.4 g/dL (6.0-8.3)
[2021-07-20] MEDS: SOLU-MEDROL 40MG VIAL IVP SCH (08:42)
[2021-07-20] MEDS: PANTOPRAZOLE 40 MG TAB DR PO SCH (08:42)
[2021-07-20] MEDS: ENOXAPARIN SODIUM 80 MG/0.8 ML SQ SCH (08:43)
[2021-07-20] MEDS: METOPROLOL TARTRATE 50 MG TAB PO SCH (08:45)
[2021-07-20] MEDS: INSULIN GLARGINE 100 UNITS/ML 10 ML VIAL SQ SCH (08:45)
[2021-07-20] MEDS: MIDAZOLAM 100MG-0.9% NS 100ML 100ML BAG IV SCH (09:12)
[2021-07-20 09:19] LABS: ABG BASE EXCESS 7.5 mmol/L (-2.0-3.0); ABG HCO3 34.4 mmol/L (21.0-28.0); ABG OXYGEN SATURATION 88.6 % (95.0-99.0); ABG PCO2 57 mmHg (35-48)
[2021-07-20] MEDS: FUROSEMIDE 20MG VIAL IV SCH (10:27)
[2021-07-20] MEDS: FENTANYL 2500MCG+NS 250ML 250 ML IV SCH (10:29)
[2021-07-20] MEDS ORDERED: MORPHINE 2 MG SYG IVP PRN (12:30)
[2021-07-20] MEDS ORDERED: LORAZEPAM 2 MG/ML 1 ML VIAL IVP PRN (12:30)
== END 2021-07-20 16:11 | DRG 207 ==
LOC: EDH 08:30 → EDHIP 12:16 → 4AH 07-06 16:20 → 2BH 07-07 10:41
PROVIDERS: ADMIT Internal Medicine; ATTEND Internal Medicine
PROC: XW033E5 Introduction of Remdesivir Anti-infective into Peripheral Vein, Percutaneous Approach, New Technology Group 5 (ICD-10-PCS; 2021-07-04)
PROC: XW0DXM6 Introduction of Baricitinib into Mouth and Pharynx, External Approach, New Technology Group 6 (ICD-10-PCS; 2021-07-06)
PROC: 5A0935A Assistance with Respiratory Ventilation, Less than 24 Consecutive Hours, High Flow/Velocity Cannula (ICD-10-PCS; 2021-07-06)
PROC: 5A1955Z Respiratory Ventilation, Greater than 96 Consecutive Hours (ICD-10-PCS; principal; 2021-07-08)
PROC: 0BH17EZ Insertion of Endotracheal Airway into Trachea, Via Natural or Artificial Opening (ICD-10-PCS; 2021-07-08)
PROC: 02HV33Z Insertion of Infusion Device into Superior Vena Cava, Percutaneous Approach (ICD-10-PCS; 2021-07-09)
PROC: 5A09357 Assistance with Respiratory Ventilation, Less than 24 Consecutive Hours, Continuous Positive Airway Pressure (ICD-10-PCS; 2021-07-13)
DX: U07.1 COVID-19 (principal); J12.82 Pneumonia due to coronavirus disease 2019; J80 Acute respiratory distress syndrome; I48.20 Chronic atrial fibrillation, unspecified; D68.69 Other thrombophilia; J95.851 Ventilator associated pneumonia; E11.22 Type 2 diabetes mellitus with diabetic chronic kidney disease; E78.5 Hyperlipidemia, unspecified; E66.01 Morbid (severe) obesity due to excess calories; G47.33 Obstructive sleep apnea (adult) (pediatric); N18.2 Chronic kidney disease, stage 2 (mild); E78.00 Pure hypercholesterolemia, unspecified; F41.9 Anxiety disorder, unspecified; I13.10 Hypertensive heart and chronic kidney disease without heart failure, with stage 1 through stage 4 chronic kidney disease, or unspecified chronic kidney disease; Z68.35 Body mass index [BMI] 35.0-35.9, adult; Z79.01 Long term (current) use of anticoagulants; Z87.891 Personal history of nicotine dependence; Z85.118 Personal history of other malignant neoplasm of bronchus and lung; Z83.3 Family history of diabetes mellitus; Z82.49 Family history of ischemic heart disease and other diseases of the circulatory system
CPT/HCPCS: 31500; 36415; 36600; 71045; 76705; 80048; 80053; 80061; 80076; 82140; 82435; 82550; 82728; 82803; 82947; 82948; 83036; 83605; 83735; 83874; 83880; 84132; 84145; 84295; 84484; 85014; 85018; 85025; 85378; 85610; 86140; 87040; 87071; 87205; 87635; 87804; 93005; 93306; 93970; 94002; 94003; 94660; 94664; 94760; A4606; C1751; C1894; C9803; G0378; J0330; J0456; J0696; J1100; J1650; J1815; J1940; J2020; J2060; J2185; J2250; J2704; J2920; J3010; J3475; J3490; J7040; J7050